=== PATIENT | female | born 1960 | race Caucasian/White ===

== ENCOUNTER → 2017-10-07 | Outpatient (CLI) | payer BC ==
[~2017-10-07] MED LIST: ABILIFY; ADAL40PEN; ALBU90OI61; ARIP10 PO; CLON.5 PO; COUMADIN; COUMADIN PO; ENOX100I; FLUSAL1005; FOLI1 PO; FURO40 PO; HUMIRA PSO40 MG/0.8; LASIX; LISI20 PO; LISINOPRIL; METO25ER PO; MULVITMIND PO; PARO20 PO; PAXIL PO; THIA100 PO; TRAZ100 PO; WARF1 PO; WARF2 PO; [UNRECOGNIZED DRUG - REMARK]
[2017-10-07 18:30] LABS: BASOPHILS ABSOLUTE AUTO 0.05 K/mm3 (0.00-0.23); BASOPHILS PERCENT AUTO 1 % (0-2); EOSINOPHILS PERCENT AUTO 2 % (0-6); Hematocrit 39.5 % (33.0-51.0); Hemoglobin 13.8 g/dL (11.5-16.0); IMMATURE GRAN ABSOLUTE AUTO 0.01 K/mm3 (0.00-0.10); IMMATURE GRAN PERCENT AUTO 0 % (0-1); LYMPHOCYTES ABSOLUTE AUTO 1.77 K/mm3 (0.84-5.20); LYMPHOCYTES PERCENT AUTO 27 % (21-46); MONOCYTES ABSOLUTE AUTO 0.46 K/mm3 (0.16-1.47); MONOCYTES PERCENT AUTO 7 % (4-13); Mean Corpuscular HGB 30.9 pg (26.0-34.0); Mean Corpuscular HGB Conc 34.9 g/dL (31.5-36.5); Mean Corpuscular Volume 89 fL (80-100); Mean Platelet Volume 11.3 fL (9.1-12.4); NEUTROPHILS PERCENT AUTO 64 % (41-73); Platelet Count 198 K/mm3 (150-400); RDW Coefficient Variation 12.1 % (11.7-14.2); Red Blood Cell Count 4.46 M/mm3 (3.80-5.20); White Blood Cell Count 6.59 K/mm3 (4.00-11.30)
[2017-10-07 18:41] LABS: Albumin/Globulin Ratio 1.1 (0.8-1.8); Bilirubin, Total 0.4 mg/dL (0.1-1.0); Bun/Creatinine Ratio 16.7 (12.0-20.0); Creatinine, Blood 1.08 mg/dL (0.40-1.00); Globulin, Blood 3.6 g/dL (2.2-4.0); Potassium, Blood 3.5 mmol/L (3.5-5.5); Total Protein, Blood 7.6 g/dL (6.4-8.2)
== END ==
LOC: LAB EV 18:25 → LAB SHORT 18:25
PROVIDERS: Physician Assistant Surgical
DX: R10.31 Right lower quadrant pain (principal)
CPT/HCPCS: 80053; 85025

== ENCOUNTER → 2018-06-09 | Outpatient (CLI) | payer BC | LOC: LAB SHORT 16:52 → LAB EV 16:52 | DX: N39.0 Urinary tract infection, site not specified (principal) | CPT/HCPCS: 87086 ==

== ENCOUNTER → 2019-03-03 | Outpatient (CLI) | payer SELFPAY ==
[2019-03-03 17:03] LABS: Bun/Creatinine Ratio 19.2 (12.0-20.0); Calcium, Blood 9.3 mg/dL (8.5-10.1); Creatinine, Blood 1.46 mg/dL (0.40-1.00); Potassium, Blood 4.4 mmol/L (3.5-5.5)
== END | disposition home or self-care (01) ==
LOC: LAB SHORT 16:48 → LAB EV 16:48
PROVIDERS: Physician Assistant Medical
DX: I82.409 Acute embolism and thrombosis of unspecified deep veins of unspecified lower extremity (principal)
CPT/HCPCS: 80048

== ENCOUNTER 2019-03-30 14:35 | Emergency (ER) | payer OTHER ==
[~2019-03-30] VITALS: Ht 157.5 cm; Wt 79.4 kg
[2019-03-30] MEDS ORDERED: Sulfamethoxazo1 EAC4 PO (14:53)
[2019-03-30] MEDS ORDERED: Augmentin 875-1 EACH (14:53)
[2019-03-30] MEDS ORDERED: XARELTO15 MG PO (14:54)
[2019-03-30] MEDS ORDERED: Augmentin 875-1 EACH PO (15:24)
[2019-03-30] MEDS ORDERED: Bactrim Ds Tab1 EACH PO (15:24)
== END 2019-03-30 15:31 | disposition home or self-care (01) ==
LOC: ER 14:35
DX: L03.115 Cellulitis of right lower limb (principal); I82.401 Acute embolism and thrombosis of unspecified deep veins of right lower extremity; I10 Essential (primary) hypertension; E11.9 Type 2 diabetes mellitus without complications; Z86.711 Personal history of pulmonary embolism; Z88.5 Allergy status to narcotic agent; Z79.899 Other long term (current) drug therapy; Z79.01 Long term (current) use of anticoagulants
CPT/HCPCS: 99283

== ENCOUNTER 2019-05-18 21:33 | Inpatient (IN) | payer OTHER ==
[~2019-05-18] VITALS: Ht 157.5 cm; Wt 83.6 kg
[~2019-05-18 21:33] MED LIST changes: +Augmentin 875-1 EACH; +Augmentin 875-1 EACH PO; +Bactrim Ds Tab1 EACH PO; +Sulfamethoxazo1 EAC4 PO; +XARELTO15 MG PO
[2019-05-18 21:59] LABS: BASOPHILS ABSOLUTE AUTO 0.03 K/mm3 (0.00-0.23); BASOPHILS PERCENT AUTO 0 % (0-2); EOSINOPHILS ABSOLUTE AUTO 0.01 K/mm3 (0.00-0.68); EOSINOPHILS PERCENT AUTO 0 % (0-6); Hematocrit 45.8 % (33.0-51.0); Hemoglobin 16.6 g/dL (11.5-16.0); IMMATURE GRAN ABSOLUTE AUTO 0.05 K/mm3 (0.00-0.10); IMMATURE GRAN PERCENT AUTO 0 % (0-1); LYMPHOCYTES ABSOLUTE AUTO 0.54 K/mm3 (0.84-5.20); LYMPHOCYTES PERCENT AUTO 3 % (21-46); MONOCYTES ABSOLUTE AUTO 0.69 K/mm3 (0.16-1.47); MONOCYTES PERCENT AUTO 4 % (4-13); Mean Corpuscular HGB 31.3 pg (26.0-34.0); Mean Corpuscular HGB Conc 36.2 g/dL (31.5-36.5); Mean Corpuscular Volume 86 fL (80-100); Mean Platelet Volume 9.7 fL (9.1-12.4); NEUTROPHILS PERCENT AUTO 92 % (41-73); Platelet Count 384 K/mm3 (150-400); RDW Coefficient Variation 11.6 % (11.7-14.2); Red Blood Cell Count 5.31 M/mm3 (3.80-5.20); White Blood Cell Count 15.72 K/mm3 (4.00-11.30)
[2019-05-18 22:17] LABS: Alanine Aminotransfer (ALT/SGP 59 U/L (12-78); Albumin, Blood 3.5 g/dL (3.4-5.0); Albumin/Globulin Ratio 0.8 (0.8-1.8); Alk Phos 213 U/L (50-136); Anion Gap 25 mmol/L (6-16); Aspartate Aminotrans (AST/SGOT 90 U/L (12-37); Bilirubin, Total 0.7 mg/dL (0.1-1.0); Blood Urea Nitrogen 9 mg/dL (8-24); Bun/Creatinine Ratio 10.9 (12.0-20.0); CO2, Blood 15 mmol/L (21-32); Calcium, Blood 8.6 mg/dL (8.5-10.1); Chloride, Blood 80 mmol/L (98-108); Creatinine, Blood 0.82 mg/dL (0.40-1.00); Ethanol (Alcohol), Blood, Med 130 mg/dL; Globulin, Blood 4.2 g/dL (2.2-4.0); Glomerular Filtration Rate >60 (60-); Glucose, Blood 171 mg/dL (70-99); Potassium, Blood 3.6 mmol/L (3.5-5.5); Sodium, Blood 120 mmol/L (136-145); Total Protein, Blood 7.7 g/dL (6.4-8.2)
[2019-05-18 22:33] LABS: U Amphetamine Screen Not Detected; U Barbituate Screen Not Detected; U Benzodiazapine Screen Not Detected; U Buprenorphine Screen Not Detected; U Cannabinoids Screen Not Detected; U Cocaine Screen Not Detected; U Methadone Screen Not Detected; U Methamphetamine Screen Not Detected; U Opiates Screen Not Detected; U Oxycodone Screen Not Detected; U Phencyclidine Screen Not Detected; U Propoxyphene Screen Not Detected
[2019-05-18 22:58] LABS: Prothrombin Time Results >90.0 Sec (9.7-11.5)
[2019-05-18 23:00] LABS: International Normalized Ratio No Calc
[2019-05-19] MEDS ORDERED: AZITHROMYCIN 250 MG (01:09)
[2019-05-19] MEDS ORDERED: WARF4 PO (01:09)
--- NOTE | 2019-05-19 02:33 | NUR ---
PT ELECTROLYTES PT SODIUM 120. POTASSIUM 3.6. AT 0230, PLACED CALL TO MARIA EUGENIA. RECOMENDED BANANA BAG D/T PT'S SODIUM AND ELECTROLYTES. STATED NO BANANA BAG AT THIS TIME. PT TO GET THIAMINE AND FOLIC ACID IN AM.
[2019-05-19 05:11] LABS: BASOPHILS ABSOLUTE AUTO 0.04 K/mm3 (0.00-0.23); BASOPHILS PERCENT AUTO 0 % (0-2); EOSINOPHILS ABSOLUTE AUTO 0.01 K/mm3 (0.00-0.68); EOSINOPHILS PERCENT AUTO 0 % (0-6); Hematocrit 42.4 % (33.0-51.0); Hemoglobin 15.6 g/dL (11.5-16.0); IMMATURE GRAN ABSOLUTE AUTO 0.03 K/mm3 (0.00-0.10); IMMATURE GRAN PERCENT AUTO 0 % (0-1); LYMPHOCYTES ABSOLUTE AUTO 0.75 K/mm3 (0.84-5.20); LYMPHOCYTES PERCENT AUTO 6 % (21-46); MONOCYTES ABSOLUTE AUTO 0.72 K/mm3 (0.16-1.47); MONOCYTES PERCENT AUTO 6 % (4-13); Mean Corpuscular HGB 31.3 pg (26.0-34.0); Mean Corpuscular HGB Conc 36.8 g/dL (31.5-36.5); Mean Corpuscular Volume 85 fL (80-100); Mean Platelet Volume 9.7 fL (9.1-12.4); NEUTROPHILS ABSOLUTE AUTO 10.88 K/mm3 (1.96-9.15); NEUTROPHILS PERCENT AUTO 88 % (41-73); Platelet Count 319 K/mm3 (150-400); RDW Coefficient Variation 11.6 % (11.7-14.2); RDW Standard Deviation 35.8 fL (35.1-46.3); Red Blood Cell Count 4.98 M/mm3 (3.80-5.20); White Blood Cell Count 12.43 K/mm3 (4.00-11.30)
[2019-05-19 05:29] LABS: Anion Gap 14 mmol/L (6-16); Blood Urea Nitrogen 10 mg/dL (8-24); CO2, Blood 24 mmol/L (21-32); Calcium, Blood 8.6 mg/dL (8.5-10.1); Chloride, Blood 83 mmol/L (98-108); Creatinine, Blood 0.83 mg/dL (0.40-1.00); Glomerular Filtration Rate >60 (60-); Glucose, Blood 193 mg/dL (70-99); Potassium, Blood 3.9 mmol/L (3.5-5.5); Sodium, Blood 121 mmol/L (136-145)
[2019-05-19 05:48] LABS: Prothrombin Time Results >90.0 Sec (9.7-11.5)
[2019-05-19 05:51] LABS: International Normalized Ratio No Calc
--- NOTE | 2019-05-19 07:08 | NUR ---
SHIFT SUMMARY PT A&OX4. LUNGS CTAB. HR 120-130S. DILT GTT AT 10MG/HR. PT CIWA 3-6. PT STATES SHE DOES NOT SEE THINGS, THEN ASKS FOR MEDICINE, THEN SAYS NOW SHE IS SEEING THINGS. PT ATE SANDWICH OVERNIGHT, GOOD APPETITE. SODIUM LEVEL 121 AT MORNING LABS, ONE LITER NS ORDERED. PT>90. FFP ORDERED. PT UP TO BEDSIDE COMMODE DURING SHIFT. PATIENT HAD ONE EPISODE OF NAUSEA, BUT RESOVLED WITH ZOFRAN IN ER.
--- NOTE | 2019-05-19 08:00 | NUR ---
Received report from Camille FERNANDO. Patient was awake and able to communicate her needs. She is on RA and sats 98%. She has tremores from ETOH withdrawls and is able to communicate when needing meds. She has 20ga LFA and is currently getting NS bolus and then at 200ml/hr and cardizem gtt at 10ml/hr and just increased to 15ml/hr for consistent rate 118. Started new 18ga IV in RFA and started FFP. She is hypertensive systolic 170-190 and medicated per JUL.
--- NOTE | 2019-05-19 08:47 | NUR ---
FFP done and flushed. Set her up for breakfast. Medicated with Librium 50mg and Ativan 2mg for anxiety per patient request. Started NS at 200ml/hr.
--- NOTE | 2019-05-19 10:50 | NUR ---
Patient has been resting after breakfast with intermitent requests. was by dixie and advised him of tranfer to PCU 3. I have already gave report to Allie FERNANDO. She continues on Cardizem gtt and reduced to 10ml/hr for systolic 110-120 and HR 80-100's. She was assisted with one full person assist to bedside cammode for urine and was incontinent of stool and cleaned her and bed linen. ECHO is being done currently. Will be transfered after test.
--- NOTE | 2019-05-19 11:40 | NUR ---
PT ARRIVED FROM ICU. PT REFSUED SCD STS "I DON'T WANT THEM THEY MAKE MY LEG CRAMP". NO OBVIOUS SIGNS OF WITHDRAWL NOTED ON ARRIVAL. SKIN PWD AND INTACT. PT ANSWERING QUESTIONS IN WITH SHORT ANSWERS SHE IS ACTIVELY ENGAGED ON HER IPAD DOES NOT LOOK UP FROM IPAD TO TALK WITH THIS RN. DENIES FURHTER NEEDS, CALL LIGHT LEFT AT BEDSIDE
--- NOTE | 2019-05-19 11:40 | NUR ---
Transfered patient to PCU 3 via wheelchair, one person transfer assist. All her belonging, phone, tablet, personal bag were taken on transfer. Allei FERNANDO was in room on transfer. She remainsed on NS at 200ml/hr and cardizem gtt at 10ml/hr. notified when here earlier that she was moving to PCU 3.
[2019-05-19 11:52] LABS: Prothrombin Time Results 47.2 Sec (9.7-11.5)
[2019-05-19 11:54] LABS: International Normalized Ratio 4.82
--- NOTE | 2019-05-19 12:57 | NUR ---
ECHOCARDIOGRAM COMPLETE
--- NOTE | 2019-05-19 13:29 | NUR ---
cardizem stopped per orders
--- NOTE | 2019-05-19 16:31 | NUR ---
PT STS THAT SHE NEEDS REMOVED FROM IV FLUIDS "I HAVE TO GO USE A COMPUTER TO DO MY UNEMPLOYMENT" IS EDUCATED THAT LEAVING ROOM SHE WILL NOT BE MONITORED APPROPRIATELY VIA HARD HAT DIVER PT STS "WELL IF YOU DON'T LET ME YOU WILL BE COSTING ME MY UNEMPLOYMENT" PT IS REMINDED THAT SHE IS NOT BEING TOLD SHE CAN NOT LEAVE RATHER IS BEING EDUCATED THAT LEAVING IS NOT THE SAFEST DECISION, PT EXPRESSED UNDERSTANDING OF EDUCATION. PT STS THAT STAFF WILL NEED TO ESCORT HER OUT OF HOSPITAL, PT EDUCATED THAT STAFF CAN NOT BE TAKING HER TO DESIRED LOCATIONS IN AND OUT OF HOSPITAL, PT STS "I WILL PUSH MYSELF" PT PROVIDED WITH WAIVER AND EDUCATED AGAIN THAT LEAVING RANGE OF MONITORING, SHE AGREES THAT SHE WILL ASSUME [id number] FOR HER DECISION TO LEAVE
--- NOTE | 2019-05-19 16:55 | NUR ---
PT BROUGHT BACK TO ROOM AFTYER CONSULTING WITH DR FIORE ABOUT PT LEAVING. PT WAS AGREEABLE TO COME BACK TO ROM WHEN OFFERED TO LOG HER IPAD ON TO [employer]. PT PARANOID THAT HER UNEMPLOYMENT HAS , OTHERWISE IS ALERT AND ANSWERING QUESTIONS APPROPRIATELY. PT AWARE OF HER SURROUNDINGS ONLY PRSENTS WITH PARANOIA. PT IS COOPERATIVE WHEN BROUGHT BACK TO ROOM, PT MEDICATED PER ORDERS CONSULTED WITH DR FIORE.
--- NOTE | 2019-05-19 18:09 | NUR ---
SHIFT NOTE PT WAS AN ICU TRANSFER THIS AFTERNOON. SHE ARRIVED A/O X4. SHE ANSWERS ALL QUESTIONS APPROPRIATELY. PT DID HAVE AN EPISODE OF PARANOIA WHERE SHE LEFT THE ROOM CONCERNED THAT SHE WAS LOSING HER UNEMPLOYMENT BENEFITS STATING THAT STAFF WAS GOING TO CAUSE HER TO LOSE HER BENEFITS. DR FIORE WAS CONSULTED AND DECISION WAS MADE TO BRING PT BACK TO ROOM AND MEDICATE HER FOR ANXIETY AND PARANOIA R/T WITHDRAWL WHICH PT HAD A CIWA OF 9 WHEN MEDICATED. PT HAS BEEN RESTING AWAKE AND COMFORTABLE IN BED SINCE BEING MEDCIATED, PT UP TO BEDSIDE TO EAT HER DINNER.
[2019-05-20 04:34] LABS: International Normalized Ratio 2.2; Prothrombin Time Results 22.5 Sec (9.7-11.5)
--- NOTE | 2019-05-20 05:10 | NUR ---
SHIFT SUMMARY PT SLEEPING IN ROOM COMFORTABLY AT THIS TIME. NO ACUTE CHANGES IN STATUS T.O NGIHT. PT SLEPT WELL T/O NIGHT. DENIED ANY CP OR SOB. PT CIWA REMAINED <8 T/O NIGHT. RESP EVEN UNLABORED ON RA W/ SATS >92%. PT DID CONVERT FROM AFIB TO SR AT APPROX 1900. PT USED CALL LIGHT APPROPRIATELY T/O NIGHT AND WAS SBA TO BSC. DENIES OTHER NEEDS. CALL LIGHT IN REACH. WILL GIVE REPORT TO ONCOMING RN.
[2019-05-20 08:59] LABS: BASOPHILS ABSOLUTE AUTO 0.01 K/mm3 (0.00-0.23); BASOPHILS PERCENT AUTO 0 % (0-2); EOSINOPHILS PERCENT AUTO 0 % (0-6); Hematocrit 41.5 % (33.0-51.0); Hemoglobin 14.7 g/dL (11.5-16.0); IMMATURE GRAN ABSOLUTE AUTO 0.03 K/mm3 (0.00-0.10); IMMATURE GRAN PERCENT AUTO 0 % (0-1); LYMPHOCYTES ABSOLUTE AUTO 0.87 K/mm3 (0.84-5.20); LYMPHOCYTES PERCENT AUTO 12 % (21-46); MONOCYTES ABSOLUTE AUTO 0.55 K/mm3 (0.16-1.47); MONOCYTES PERCENT AUTO 8 % (4-13); Mean Corpuscular HGB 31.2 pg (26.0-34.0); Mean Corpuscular HGB Conc 35.4 g/dL (31.5-36.5); NEUTROPHILS ABSOLUTE AUTO 5.58 K/mm3 (1.96-9.15); NEUTROPHILS PERCENT AUTO 79 % (41-73); Platelet Count 201 K/mm3 (150-400); RDW Coefficient Variation 11.8 % (11.7-14.2); RDW Standard Deviation 37.9 fL (35.1-46.3); Red Blood Cell Count 4.71 M/mm3 (3.80-5.20); White Blood Cell Count 7.04 K/mm3 (4.00-11.30)
[2019-05-20 09:04] LABS: Mean Corpuscular Volume 88 fL (80-100)
[2019-05-20 09:28] LABS: Magnesium, Blood 2.1 mg/dL (1.6-2.4)
[2019-05-20 09:31] LABS: Alanine Aminotransfer (ALT/SGP 38 U/L (12-78); Albumin, Blood 3.1 g/dL (3.4-5.0); Albumin/Globulin Ratio 0.9 (0.8-1.8); Alk Phos 150 U/L (50-136); Aspartate Aminotrans (AST/SGOT 48 U/L (12-37); Bilirubin, Total 1.6 mg/dL (0.1-1.0); Blood Urea Nitrogen 11 mg/dL (8-24); Bun/Creatinine Ratio 13.7 (12.0-20.0); CO2, Blood 26 mmol/L (21-32); Calcium, Blood 9.3 mg/dL (8.5-10.1); Chloride, Blood 101 mmol/L (98-108); Globulin, Blood 3.5 g/dL (2.2-4.0); Glomerular Filtration Rate >60 (60-); Glucose, Blood 167 mg/dL (70-99); Potassium, Blood 3.5 mmol/L (3.5-5.5); Total Protein, Blood 6.6 g/dL (6.4-8.2)
[2019-05-20 09:32] LABS: Anion Gap 8 mmol/L (6-16); Sodium, Blood 135 mmol/L (136-145)
[2019-05-20 13:46] LABS: Anion Gap 9 mmol/L (6-16); Blood Urea Nitrogen 13 mg/dL (8-24); CO2, Blood 24 mmol/L (21-32); Calcium, Blood 8.6 mg/dL (8.5-10.1); Chloride, Blood 99 mmol/L (98-108); Creatinine, Blood 0.81 mg/dL (0.40-1.00); Glomerular Filtration Rate >60 (60-); Glucose, Blood 272 mg/dL (70-99); Potassium, Blood 3.1 mmol/L (3.5-5.5); Sodium, Blood 132 mmol/L (136-145)
--- NOTE | 2019-05-20 17:46 | NUR ---
SHIFT SUMMARY PT ALERT AND ORIENTED AT THIS TIME. BP STABLE. HR AFIB 100'S. O2 SATS REMAIN ABOVE 90% ON RA. PT HAVING VISUAL AND AUDITORY HALLUCINATIONS AT TIMES THROUGHOUT SHIFT AND MEDICATED PER CIWA PROTOCOL. PT ABLE TO AMBULATE TO BATHROOM AND BSC NEEDED TO VOID WITH SBA AND FWW. PT DENIES ANY PAIN. PT ANXIOUS AT TIMES. WILL CONTINUE TO MONITOR CLOSELY. CALL LIGHT IN REACH.
--- NOTE | 2019-05-21 01:42 | NUR ---
ASSUMED CARE AT 1900. AF CONTROLLED RATE. 90. WHEN OOB TO BR NOTED 130 RATE , AND AT REST RATE BACK TO 90; CIWA 10 AT 1999. ATIVAN 1 MG GIVEN AND SCHEDULED LIBRIUM GIVEN. REVIEW OF HALLUCINATIONS @ 2000 = "I SEE THINGS ON THE WALL AND I AM HEARING GRIFFIN TALK TO ME AND MY DOG BARK. MY LEGS ITCH AND MY RT FOOT NUMB. MY HEAD ACHE NEVER GOES AWAY AND IT IS VERY SEVERE. I CANT HAVE THE LIGHTS ON. I HAVE CHRONIC BACK PAIN AND IT IS A 5/10 , AND THIS IS WHAT I LIVE W/. " YELLING OUT AND TALKING HARSHLY TO AND TELLS HIM TO GO OUT AND DO HIS USUAL DRINKING. AND CALLING W/ A SOFT VOICE FOR HER DOG TO COME TO SLEEP BY HER. NOTED MANY BRIUSES ALL OVER LEGS AND BOTH UPPER BUTTOCK AREAS . SEVERLY EXCORIATED HARESH ANAL AREA . RRPORTS "I HAVE BEEN POOPING AND PEEING ON MY SKIN AT HOME. NO DISCUSSION ABOUT WHY SHE HAS BEEN FALLING ALL THE TIME AT HOME. WHILE SHE IS HALLUCINATING THIS NURSE DID NOT ASK ABOUT THIS. SLEEPING SOUNDLY FROM 2029 TO 99. THEN ASKED STAFF TO GIVE HER A BEDPAN SINCE SHE COULD NOT MAKE IT TO [facility] [place]. SKIN CONDITION ADDRESSED , HARESH ANAL AREA CIWA 15 , 1 MG ATIVAN IV GIVEN. WHEN ASKED ABOUT HALLUCINATIONS, YELLING OUT AT HER AND SAYS GET THE DISHES DONE BEFORE YOU GO OUT DRINKING AGAIN. CONSTANT YELLING AT HIM AND TALKING MORE CALMLY AT DOG. LATER SAYS MY TOOK OFF ALL MY PATCHES FOR MY HEART MONITOR. CONT TO SAY MY FOURNIER IS NOT GOING AWAY . QUESTIONED ABOUT ABUSE AT HER HOME SINCE SHE HAS SO MANY BUISES. DENIES ANY ABUSE AT HOME.
--- NOTE | 2019-05-21 02:22 | NUR ---
CALLS NURSES STATION W/ CELL PHONE, TO HAVE THIS STAFF NURSE COME TO HER ROOM. HER CALL LITE IS IN REACH WHEN STAFF ENTERS ROOM. REPORTS. "I CANT TAKE ANOTHER MINUTE IN THIS ROOM , I HAVE MY FRIEND COMING TO PICK ME UP. " NOTIFIED THAT I WILL PREPARE AMA PAPERS TO SIGN. REQUEST FOR IVS TO BE REMOVED AND STAFF NOTIFIES WE WILL WAIT UNTIL SHE LEAVES/
--- NOTE | 2019-05-21 03:30 | NUR ---
PULLING OUT ONE IV. FRIEND , LAZARO HERE UPON PT REQUEST. AND WILL TAKE HER TO HER HOME. SIGNED AMA W/ RISKS LISTED. SEVERE WEAKNESS AND COULD ONLY TAKE 2 STEPS IO W/C AND THEN TO CAR W/ EXTREME EFFORT AND DIFFICULY. VERY LITTLE MEDS GIVEN FOR DTS AND WITH ALL HALLUCINATIONS CIWA COULD RANGE FROM 15-19. PLEASANT AND CALM WHILE SHE MADE THIS DECISION TO EXIT AMA . INFORMED DR GOSS OF AMA
[2019-05-21] MEDS ORDERED: MONT10T PO (15:53)
[2019-05-21] MEDS ORDERED: FLUTICASONE-SA1 EAC4 INH (15:59)
[2019-05-22] MEDS ORDERED: ACET325 PO (12:06)
[2019-05-22] MEDS ORDERED: Aspir 8181 MG PO (12:07)
[2019-05-22] MEDS ORDERED: DILT120 PO (12:08)
[2019-05-22] MEDS ORDERED: FLUTICASONE-SA1 EAC2 INH (12:10)
[2019-05-22] MEDS ORDERED: MONT10T PO (12:13)
== END 2019-05-21 03:42 | disposition left against medical advice (07) | DRG 309 ==
LOC: ER 21:33 → ICUW 23:58 → PCU 05-19 11:43
PROVIDERS: Emergency Medicine; Internal Medicine; Pharmacist; ADMIT Hospitalist
DX: I48.0 Paroxysmal atrial fibrillation (principal); F10.239 Alcohol dependence with withdrawal, unspecified; E87.1 Hypo-osmolality and hyponatremia; Z86.718 Personal history of other venous thrombosis and embolism; Z88.5 Allergy status to narcotic agent
CPT/HCPCS: 36415; 36430; 70450; 73630; 80048; 80053; 83690; 83735; 84443; 85025; 85610; 86850; 86900; 86901; 93005; 93010; 93306; 96374; 96376; 99285-25; A9270; G0480; J2060; J2405; J7030; P9059

== ENCOUNTER 2019-05-21 11:01 | Observation (INO) | payer OTHER ==
[~2019-05-21] VITALS: Ht 157.5 cm; Wt 77.7 kg
[~2019-05-21 11:01] MED LIST changes: +AZITHROMYCIN 250 MG; +WARF4 PO
[2019-05-21 13:04] LABS: BASOPHILS ABSOLUTE AUTO 0.04 K/mm3 (0.00-0.23); BASOPHILS PERCENT AUTO 0 % (0-2); EOSINOPHILS ABSOLUTE AUTO 0.02 K/mm3 (0.00-0.68); EOSINOPHILS PERCENT AUTO 0 % (0-6); Hematocrit 44.4 % (33.0-51.0); Hemoglobin 15.3 g/dL (11.5-16.0); IMMATURE GRAN ABSOLUTE AUTO 0.06 K/mm3 (0.00-0.10); IMMATURE GRAN PERCENT AUTO 1 % (0-1); LYMPHOCYTES ABSOLUTE AUTO 1.11 K/mm3 (0.84-5.20); LYMPHOCYTES PERCENT AUTO 12 % (21-46); MONOCYTES ABSOLUTE AUTO 0.89 K/mm3 (0.16-1.47); MONOCYTES PERCENT AUTO 10 % (4-13); Mean Corpuscular HGB 31.2 pg (26.0-34.0); Mean Corpuscular HGB Conc 34.5 g/dL (31.5-36.5); Mean Platelet Volume 10.2 fL (9.1-12.4); NEUTROPHILS ABSOLUTE AUTO 7.12 K/mm3 (1.96-9.15); NEUTROPHILS PERCENT AUTO 77 % (41-73); Platelet Count 144 K/mm3 (150-400); RDW Coefficient Variation 11.8 % (11.7-14.2); RDW Standard Deviation 39.1 fL (35.1-46.3); White Blood Cell Count 9.24 K/mm3 (4.00-11.30)
[2019-05-21 13:06] LABS: Mean Corpuscular Volume 91 fL (80-100)
[2019-05-21 13:33] LABS: Ethanol (Alcohol), Blood, Med <3 mg/dL; Salicylate <1.7 mg/dL (2.8-20.0)
[2019-05-21 13:44] LABS: Alanine Aminotransfer (ALT/SGP 50 U/L (12-78); Albumin, Blood 3.1 g/dL (3.4-5.0); Albumin/Globulin Ratio 0.8 (0.8-1.8); Alk Phos 141 U/L (50-136); Anion Gap 8 mmol/L (6-16); Aspartate Aminotrans (AST/SGOT 56 U/L (12-37); Bilirubin, Total 0.9 mg/dL (0.1-1.0); Blood Urea Nitrogen 10 mg/dL (8-24); Bun/Creatinine Ratio 14.6 (12.0-20.0); CO2, Blood 27 mmol/L (21-32); Calcium, Blood 9.1 mg/dL (8.5-10.1); Chloride, Blood 98 mmol/L (98-108); Creatinine, Blood 0.68 mg/dL (0.40-1.00); Glomerular Filtration Rate >60 (60-); Glucose, Blood 203 mg/dL (70-99); Potassium, Blood 3.1 mmol/L (3.5-5.5); Sodium, Blood 133 mmol/L (136-145); Total Protein, Blood 7.1 g/dL (6.4-8.2)
[2019-05-21 13:54] LABS: Source, Urine Voided
[2019-05-21 14:01] LABS: Bilirubin, Urine Neg (Neg); Blood, Urine 2+ (Neg); Glucose Qualitative, Urine 3+ (Neg); Ketones, Urine Neg (Neg); Leukocyte Esterase, Urine 1+ (Neg); Nitrite, Urine Neg (Neg); Protein, Urine Neg (Neg); Urobilinogen, Urine NORM (Normal)
[2019-05-21 14:04] LABS: Appearance, Urine Clear (Clear); Color, Urine Yellow (P-Yellow)
[2019-05-21 14:06] LABS: Acetaminophen, Random <2.0 ug/mL (10.0-30.0)
[2019-05-21 14:16] LABS: Bacteria Mod /hpf; Red Blood Cells, Urine 0-2 /hpf (0-2); Squamous Epithelial Cells Few /hpf (Few)
[2019-05-21 14:21] LABS: U Amphetamine Screen DETECTED; U Barbituate Screen Not Detected; U Benzodiazapine Screen Not Detected; U Buprenorphine Screen Not Detected; U Cannabinoids Screen Not Detected; U Cocaine Screen Not Detected; U Methadone Screen Not Detected; U Methamphetamine Screen Not Detected; U Opiates Screen Not Detected; U Oxycodone Screen Not Detected; U Phencyclidine Screen Not Detected; U Propoxyphene Screen Not Detected
[2019-05-21] MEDS ORDERED: MONT10T PO (15:53)
[2019-05-21] MEDS ORDERED: FLUTICASONE-SA1 EAC4 INH (15:59)
[2019-05-21 18:21] LABS: International Normalized Ratio 1.83; Prothrombin Time Results 18.9 Sec (9.7-11.5)
--- NOTE | 2019-05-21 19:00 | NUR ---
PT ARRIVED TO ROOM 350 WITH ROOM CHECKED PRIOR TO ARRIVAL FOR S.I. ARRIVED TO ROOM ON [facility] AND TRANSFERRED WITH ASSIST. ASKING ABOUT USING A PHONE. DISCUSSED WITH PT CONCERN ABOUT HER REPORT OF SELF HARM. IV STARTED BY SAND TEMPERER AND TELE PLACED.
--- NOTE | 2019-05-21 22:50 | NUR ---
UFF CONSULT PAPERWORK FAXED TO ER.
[2019-05-22 05:16] LABS: BASOPHILS ABSOLUTE AUTO 0.03 K/mm3 (0.00-0.23); BASOPHILS PERCENT AUTO 0 % (0-2); EOSINOPHILS ABSOLUTE AUTO 0.09 K/mm3 (0.00-0.68); EOSINOPHILS PERCENT AUTO 1 % (0-6); Hematocrit 39.8 % (33.0-51.0); Hemoglobin 14.1 g/dL (11.5-16.0); IMMATURE GRAN ABSOLUTE AUTO 0.03 K/mm3 (0.00-0.10); IMMATURE GRAN PERCENT AUTO 0 % (0-1); LYMPHOCYTES PERCENT AUTO 15 % (21-46); MONOCYTES ABSOLUTE AUTO 0.41 K/mm3 (0.16-1.47); MONOCYTES PERCENT AUTO 6 % (4-13); Mean Corpuscular HGB 31.8 pg (26.0-34.0); Mean Corpuscular HGB Conc 35.4 g/dL (31.5-36.5); Mean Corpuscular Volume 90 fL (80-100); NEUTROPHILS ABSOLUTE AUTO 5.24 K/mm3 (1.96-9.15); NEUTROPHILS PERCENT AUTO 77 % (41-73); Platelet Count 178 K/mm3 (150-400); RDW Coefficient Variation 11.7 % (11.7-14.2); RDW Standard Deviation 38.5 fL (35.1-46.3); Red Blood Cell Count 4.43 M/mm3 (3.80-5.20)
[2019-05-22 05:32] LABS: International Normalized Ratio 2.17; Prothrombin Time Results 22.2 Sec (9.7-11.5)
--- NOTE | 2019-05-22 05:36 | NUR ---
SUMMARY: PT REMAINS ON SI PREC'S W/CAMERA MONITORING IN PLACE PENDING REEVALUATION BY TODAY. SHE ADMITS TO SI YESTERDAY PRIOR TO ADMIT BUT DENIED HAVING A PLAN OR ANY THOUGHTS OF HARMING HERSELF SINCE. SHE DIDN'T CARE TO ELABORATE BUT STATED THOUGHTS WERE PROVOKED BY "BEING EXHAUSTED AND IT ALL JUST BECOMING TOO MUCH". SUPPORT PROVIDED BUT PT IS SOMEWHAT FLAT/ WITHDRAWN AND ADMITS TO DEPRESSION. SHE IS A/OX4 BUT SEEMS MILDLY FORGETFULL AT TIMES, CALLING INTO HALLS FOR ASSIST RATHER THEN USING CALL LIGHT. BED ALARM ON FOR IMPULSIVITY AND FALL RISK. SHE REPORTS FALLING MULTIPLE TIMES PRIOR TO ADMISSION W/BRUISES SCATTERED T/O HER BODY RESULT OF "DT'S". SHE ADMITS TO DRINKING X3 DAYS AGO BUT SAYS SHE "REALLY ONLY SELDOMLY DRINKS". CIWA'S WERE 0-4 D/T C/O MILD FOURNIER, TREMOR AND SLIGHT NAUSEA. PT REFUSED TYLENOL AND ZOFRAN THOUGH AND SLEPT EASILY W/O NEEDING LIBRIUM OR ATIVAN PRN. HER R.ANKLE/CALF/FOOT IS SWOLLEN, HOT AND RED D/T "BLOOD CLOT". PT ADMITS TO TAKING COUMADIN FOR IT. SHE DENIED ANY FURTHER COMPLAINTS/CONCERNS AND SLEPT MAJORITY OF SHIFT EXCEPT FOR BSC USE W/SBA. PT PREFERS NOT TO WEAR BLUE PAPER CLOTHING. PT HAS KNOWN AFIB AND HAS REMAINED IN AFIB W/HR 80'S- 90'S BPM PER TELEMETRY. NO ACUTE CHANGES, VSS/AFEBRILE. WCTM AND REPORT TO DAY RN.
[2019-05-22 05:54] LABS: Anion Gap 6 mmol/L (6-16); Blood Urea Nitrogen 18 mg/dL (8-24); Bun/Creatinine Ratio 21.4 (12.0-20.0); CO2, Blood 28 mmol/L (21-32); Chloride, Blood 103 mmol/L (98-108); Creatinine, Blood 0.84 mg/dL (0.40-1.00); Glomerular Filtration Rate >60 (60-); Glucose, Blood 199 mg/dL (70-99); Magnesium, Blood 1.9 mg/dL (1.6-2.4); Phosphorus, Blood 2.6 mg/dL (2.5-4.9); Potassium, Blood 3.7 mmol/L (3.5-5.5); Sodium, Blood 137 mmol/L (136-145)
--- NOTE | 2019-05-22 11:11 | NUR ---
Safety Plan reviewed with patient. She reports she was not in hospital for suicidal thoughts, but for detox. She halllucinated yesterday while hospitalizxed in PCU and walked out because it scared her so much. She now is able to know that it was part of her detoxing. She had been sober for 8 years--[facility] for treatment. She relapsed and drank for the past 5-6 dyas. She reports stress--nher and she do not have jobs. She does think that a counselor might be helpful for her. DDiscussed [facility] and walk in hours. [facility] updated on this [facility] planning. Pt worried about cost. After discussion, it appears Hospital has assisted her to apply for OHP. Pt says she was told she got it. Pt was not talkative, and continued to lay flat in bed with covers to her chin during visit. Her had come to [facility], and left as he "[facility]". Pt was oriented x3. Affect was flat. She denied suicidal ideation. Luzma Garcia M.Ed., [facility]
[2019-05-22] MEDS ORDERED: ACET325 PO (12:06)
[2019-05-22] MEDS ORDERED: Aspir 8181 MG PO (12:07)
[2019-05-22] MEDS ORDERED: DILT120 PO (12:08)
[2019-05-22] MEDS ORDERED: FLUTICASONE-SA1 EAC2 INH (12:10)
[2019-05-22] MEDS ORDERED: MONT10T PO (12:13)
--- NOTE | 2019-05-22 15:30 | NUR ---
DISCHARGE INSTRUCTIONS COMPLETED AND DISCUSSED WITH PT EXPRESSING UNDERSTANDING. SCRIPTS FAXED TO [facility]. HAD BEEN UP TO COMMODE ON HER OWN TODAY. REPORTS SHE HAS NO SI TODAY. P.T. IN TO SEE PT AND RECOMMENDED WALKER ON DISCHARGE. FRIEND HERE TO PICK PT UP. TO [facility] VIA W/C.
== END 2019-05-22 14:59 | disposition home or self-care (01) ==
LOC: ER 11:01 → EOR 11:02 → MEDS 11:02
PROVIDERS: Internal Medicine; ADMIT Emergency Medicine
DX: I10 Essential (primary) hypertension (principal); F43.21 Adjustment disorder with depressed mood; F10.10 Alcohol abuse, uncomplicated; R53.1 Weakness; R82.5 Elevated urine levels of drugs, medicaments and biological substances; E87.6 Hypokalemia; E87.1 Hypo-osmolality and hyponatremia; I48.91 Unspecified atrial fibrillation; G47.00 Insomnia, unspecified; J45.909 Unspecified asthma, uncomplicated; E11.9 Type 2 diabetes mellitus without complications; E78.5 Hyperlipidemia, unspecified; Z86.718 Personal history of other venous thrombosis and embolism; Z79.01 Long term (current) use of anticoagulants; Z88.5 Allergy status to narcotic agent; Z79.51 Long term (current) use of inhaled steroids; Z79.82 Long term (current) use of aspirin; Z79.899 Other long term (current) drug therapy; Z98.84 Bariatric surgery status; Y90.6 Blood alcohol level of 120-199 mg/100 ml
CPT/HCPCS: 36415; 80048; 80053; 81001; 81025; 83735; 84100; 85025; 85610; 87086; 93005; 93010; 94640; 94760; 96374; 97116; 97162; 99285-25; C9113; G0378; G0480

== ENCOUNTER 2019-06-24 18:26 | Observation (INO) | payer OTHER ==
[~2019-06-24] VITALS: Ht 160 cm; Wt 70.3 kg
[~2019-06-24 18:26] MED LIST changes: +ACET325 PO; +Aspir 8181 MG PO; +BACTRIM DS TAB1 EACH PO; +DILT120 PO; +FLUTICASONE-SA1 EAC2 INH; +FLUTICASONE-SA1 EAC4 INH; +IBUP400 PO; +LOSA25 PO; +METOPROLOL TART25 MG PO; +MONT10T PO
[2019-06-24 20:37] LABS: Source, Urine Clean Catch
[2019-06-24 20:39] LABS: Appearance, Urine Clear (Clear); Bilirubin, Urine Neg (Neg); Blood, Urine Neg (Neg); Color, Urine Yellow (P-Yellow); Glucose Qualitative, Urine Neg (Neg); Ketones, Urine Neg (Neg); Leukocyte Esterase, Urine Neg (Neg); Nitrite, Urine Neg (Neg); Protein, Urine Neg (Neg); Urobilinogen, Urine NORM (Normal)
== END 2019-06-25 01:36 | disposition home or self-care (01) ==
LOC: ER 18:26 → EOR 18:27
PROVIDERS: Physician Assistant; ADMIT Emergency Medicine
DX: F10.229 Alcohol dependence with intoxication, unspecified (principal); E78.5 Hyperlipidemia, unspecified; E11.9 Type 2 diabetes mellitus without complications; J45.909 Unspecified asthma, uncomplicated; I10 Essential (primary) hypertension; Z79.01 Long term (current) use of anticoagulants; Z79.899 Other long term (current) drug therapy
CPT/HCPCS: 70450; 81003; 99285-25; G0378

== ENCOUNTER 2019-06-27 17:17 | Emergency (ER) | payer OTHER ==
[2019-06-28] MEDS ORDERED: B-1100 M1 PO (12:44)
== END 2019-06-28 17:30 | disposition left against medical advice (07) ==
LOC: ER 17:17
DX: Z53.21 Procedure and treatment not carried out due to patient leaving prior to being seen by health care provider (principal)

== ENCOUNTER 2019-06-28 09:24 | Inpatient (IN) | payer OTHER ==
[~2019-06-28] VITALS: Ht 157.5 cm; Wt 81.2 kg
[2019-06-28 11:16] LABS: BASOPHILS ABSOLUTE AUTO 0.03 K/mm3 (0.00-0.23); BASOPHILS PERCENT AUTO 1 % (0-2); EOSINOPHILS PERCENT AUTO 0 % (0-6); Hematocrit 44.5 % (33.0-51.0); Hemoglobin 15.6 g/dL (11.5-16.0); IMMATURE GRAN ABSOLUTE AUTO 0.02 K/mm3 (0.00-0.10); IMMATURE GRAN PERCENT AUTO 0 % (0-1); LYMPHOCYTES ABSOLUTE AUTO 0.21 K/mm3 (0.84-5.20); LYMPHOCYTES PERCENT AUTO 4 % (21-46); MONOCYTES ABSOLUTE AUTO 0.45 K/mm3 (0.16-1.47); MONOCYTES PERCENT AUTO 9 % (4-13); Mean Corpuscular HGB 30.9 pg (26.0-34.0); Mean Corpuscular HGB Conc 35.1 g/dL (31.5-36.5); Mean Corpuscular Volume 88 fL (80-100); Mean Platelet Volume 9.4 fL (9.1-12.4); NEUTROPHILS ABSOLUTE AUTO 4.55 K/mm3 (1.96-9.15); NEUTROPHILS PERCENT AUTO 86 % (41-73); Platelet Count 355 K/mm3 (150-400); RDW Coefficient Variation 12.4 % (11.7-14.2); RDW Standard Deviation 39.9 fL (35.1-46.3); Red Blood Cell Count 5.05 M/mm3 (3.80-5.20); White Blood Cell Count 5.26 K/mm3 (4.00-11.30)
[2019-06-28 11:38] LABS: Alanine Aminotransfer (ALT/SGP 79 U/L (12-78); Albumin, Blood 3.6 g/dL (3.4-5.0); Albumin/Globulin Ratio 0.9 (0.8-1.8); Alk Phos 187 U/L (50-136); Anion Gap 15 mmol/L (6-16); Aspartate Aminotrans (AST/SGOT 82 U/L (12-37); Bilirubin, Total 0.6 mg/dL (0.1-1.0); Blood Urea Nitrogen 6 mg/dL (8-24); Bun/Creatinine Ratio 7.1 (12.0-20.0); CO2, Blood 25 mmol/L (21-32); Calcium, Blood 8.7 mg/dL (8.5-10.1); Chloride, Blood 82 mmol/L (98-108); Creatinine, Blood 0.85 mg/dL (0.40-1.00); Ethanol (Alcohol), Blood, Med 223 mg/dL; Globulin, Blood 4.1 g/dL (2.2-4.0); Glomerular Filtration Rate >60 (60-); Glucose, Blood 113 mg/dL (70-99); Potassium, Blood 4.2 mmol/L (3.5-5.5); Salicylate 1.9 mg/dL (2.8-20.0); Sodium, Blood 122 mmol/L (136-145); Total Protein, Blood 7.7 g/dL (6.4-8.2)
[2019-06-28 11:41] LABS: Acetaminophen, Random <2.0 ug/mL (10.0-30.0)
[2019-06-28 11:56] LABS: Source, Urine Clean Catch
[2019-06-28 12:08] LABS: Bilirubin, Urine Neg (Neg); Blood, Urine 2+ (Neg); Glucose Qualitative, Urine Neg (Neg); Ketones, Urine Neg (Neg); Leukocyte Esterase, Urine Neg (Neg); Nitrite, Urine Neg (Neg); Protein, Urine 2+ (Neg); Urobilinogen, Urine NORM (Normal)
[2019-06-28 12:25] LABS: Appearance, Urine Clear (Clear); Color, Urine Yellow (P-Yellow)
[2019-06-28 12:26] LABS: Bacteria Not Seen /hpf; Red Blood Cells, Urine 0-2 /hpf (0-2); Squamous Epithelial Cells Mod /hpf (Few); White Blood Cells, Urine 0-2 /hpf (0-5)
[2019-06-28 12:43] LABS: U Amphetamine Screen Not Detected; U Barbituate Screen Not Detected; U Benzodiazapine Screen Not Detected; U Buprenorphine Screen Not Detected; U Cannabinoids Screen Not Detected; U Cocaine Screen Not Detected; U Methadone Screen Not Detected; U Methamphetamine Screen Not Detected; U Opiates Screen Not Detected; U Oxycodone Screen Not Detected; U Phencyclidine Screen Not Detected; U Propoxyphene Screen Not Detected
[2019-06-28] MEDS ORDERED: B-1100 M1 PO (12:44)
[2019-06-28 15:15] LABS: International Normalized Ratio 1.26; Prothrombin Time Results 13.3 Sec (9.7-11.5)
--- NOTE | 2019-06-29 06:49 | NUR ---
SHIFT SUMMARY PT HAS RESTED FOR MOST OF THE NIGHT. PT WAS VERY ANXIOUS AT THE BEGINNING OF THE SHIFT. SHE HAD VISIBLE TREMORS, AND WAS VISIBLY AGITATED. CIWA WAS 11. MEDICATED WITH LIBRIUM. SINCE THAT TIME PT HAS BEEN ABLE TO REST AND HAS NOT HAD COMPLAINTS. MEDICATED X1 FOR BACK PAIN. CIWA'S SINCE MY INITIAL ASSESSMENT WERE UNDER 8. TELE IN PLACE WITH AFIB RHYTHM PER HEALTH SAFETY ENGINEER. PT HAS HX OF AFIB. RATE IS CONTROLLED IN THE 80'S. IVF INFUSING PER ORDERS. PT A/OX4, CALLS APPROPRIATELY. BED IN LOWEST POSITION, CALL LIGHT WITHIN REACH. WILL CONTINUE TO MONITOR AND REPORT TO ONCOMING RN.
[2019-06-29 14:40] LABS: Anion Gap 6 mmol/L (6-16); Blood Urea Nitrogen 14 mg/dL (8-24); Bun/Creatinine Ratio 14.7 (12.0-20.0); CO2, Blood 27 mmol/L (21-32); Calcium, Blood 8.4 mg/dL (8.5-10.1); Chloride, Blood 92 mmol/L (98-108); Creatinine, Blood 0.95 mg/dL (0.40-1.00); Glomerular Filtration Rate >60 (60-); Glucose, Blood 206 mg/dL (70-99); Magnesium, Blood 2.2 mg/dL (1.6-2.4); Potassium, Blood 4.3 mmol/L (3.5-5.5); Sodium, Blood 125 mmol/L (136-145)
--- NOTE | 2019-06-29 17:41 | NUR ---
PATIENT A/OX4, UP TO CHAIR TODAY WITH 2 ASSIST AND A FWW. R ANKLE FX IS SLPINTED. PAIN WELL CONTROLLED WITH NORCO. CIWA THIS AFTERNOON WAS 15 AND LIBRIUM WAS GIVEN. RECHECKED AND PATIENT DID NOT REQUIRE ANY ADDITIONAL LIBRIUM OR ATIVAN THIS SHIFT. VSS, ON RA. TOLERATING ADA DIET. PT/OT ORDERED. PLANS TO F/U WITH [facility] FOR REHAB ONCE DC'D. NA+ REMAINS 122, PATIENT HAS NS @100ML/HR AND DAILY BANANA BAG. 20G IV TO L FA WNL. CALM AND COOPERATIVE WITH CARE. CALLS APPROPRIATELY FOR ASSISTANCE.
--- NOTE | 2019-06-30 04:53 | NUR ---
SUMMARY PT CONTINUES TO COMPLAIN OF COUGH AND SORE THROAT. DR. CARRINGTON ORDERED COUGH MEDS W/ SOME RELIEF. PT HAS STATED SHE WANTS TO GO HOME TODAY. PT CURRENTLY SLEEPING IN NO DISTRESS. CALL LIGHT IN REACH
[2019-06-30 05:21] LABS: BASOPHILS ABSOLUTE AUTO 0.02 K/mm3 (0.00-0.23); BASOPHILS PERCENT AUTO 1 % (0-2); EOSINOPHILS ABSOLUTE AUTO 0.02 K/mm3 (0.00-0.68); EOSINOPHILS PERCENT AUTO 1 % (0-6); Hematocrit 37.2 % (33.0-51.0); Hemoglobin 12.4 g/dL (11.5-16.0); IMMATURE GRAN ABSOLUTE AUTO 0.02 K/mm3 (0.00-0.10); IMMATURE GRAN PERCENT AUTO 1 % (0-1); LYMPHOCYTES ABSOLUTE AUTO 0.46 K/mm3 (0.84-5.20); LYMPHOCYTES PERCENT AUTO 11 % (21-46); MONOCYTES ABSOLUTE AUTO 0.39 K/mm3 (0.16-1.47); MONOCYTES PERCENT AUTO 10 % (4-13); Mean Corpuscular HGB 31.8 pg (26.0-34.0); Mean Corpuscular HGB Conc 33.3 g/dL (31.5-36.5); Mean Platelet Volume 10.2 fL (9.1-12.4); NEUTROPHILS ABSOLUTE AUTO 3.12 K/mm3 (1.96-9.15); NEUTROPHILS PERCENT AUTO 77 % (41-73); Platelet Count 166 K/mm3 (150-400); RDW Standard Deviation 45.2 fL (35.1-46.3); White Blood Cell Count 4.03 K/mm3 (4.00-11.30)
[2019-06-30 05:23] LABS: Mean Corpuscular Volume 95 fL (80-100)
[2019-06-30 05:52] LABS: Magnesium, Blood 2.1 mg/dL (1.6-2.4)
[2019-06-30 05:55] LABS: Anion Gap 8 mmol/L (6-16); Blood Urea Nitrogen 13 mg/dL (8-24); Bun/Creatinine Ratio 14.5 (12.0-20.0); CO2, Blood 23 mmol/L (21-32); Calcium, Blood 8.2 mg/dL (8.5-10.1); Chloride, Blood 98 mmol/L (98-108); Glomerular Filtration Rate >60 (60-); Glucose, Blood 141 mg/dL (70-99); Potassium, Blood 4.5 mmol/L (3.5-5.5); Sodium, Blood 129 mmol/L (136-145)
[2019-06-30] MEDS ORDERED: Norco 5-325 Ta1 EACH PO (11:05)
--- NOTE | 2019-06-30 18:00 | NUR ---
SHIFT SUMMARY PT HAS HAD 4 BMS THIS SHIFT. MOSTLY SOFT, BUT MUCOUSY. C DIFF R/O ORDERED. AWAITING RESULTS. PT MEDICATED FOR PAIN ONCE THIS SHIFT. PT EVALED BY PT. SNF RECCOMENDATION. DC PLANNING COORDINATING. PT NON-WEIGHT BEARING TO R FOOT. BEDREST FOR NURSING STAFF DUE TO INABILITY TO KEEP WEIGHT OFF FOOT. NO OTHER CHANGES IN ASSESSMENT AT THIS TIME. VSS. WILL CONTINUE TO MONITOR UNTIL TURNOVER IS COMPLETE.
--- NOTE | 2019-07-01 06:10 | NUR ---
SUMMARY PT HAS SLEPT WELL T/O SHIFT. PT IS MORE ALERT THIS SHIFT. PTHAS BEEN ABLE TO STAND/ PIVOT TO BSC W/ ASSISTANCE. PT SLEPT MOST OF SHIFT. PT SLEEPING AND BREATHING EASY. CALL LIGHT IN REACH
--- NOTE | 2019-07-01 17:07 | NUR ---
SHIFT SUMMARY PT UP TO COMMODE TO VOID ONCE THIS SHIFT. PT REFUSED GETTING OUT OF BED SINCE. PT HAS HAD LIQUID STOOLS WITH GREAT URGENCY. PT SLEPT MOST THE DAY. REFUSED BREAKFAST & LUNCH. PT DRANK ONE ENSURE THIS SHIFT. PT BOTTOM RED DUE TO PARTIAL INCONT STOOLS. NO OTHER CHANGES IN ASSESSMENT AT THIS TIME. VSS. WILL CONTINUE TO MONITOR UNTIL TURNOVER IS COMPLETE.
[2019-07-02] MEDS ORDERED: Anti-Diarrheal2 MG PO (10:30)
--- NOTE | 2019-07-02 15:00 | NUR ---
PT REFUSING OT PT REFUSING TO BE SEEN BY OCCUPATIONAL THERAPY. PT IN FORMED THAT THERAPY IS IMPORTANT AND HER REFUSAL IS THE REASON SNF REFUSED HER. PT STATES SHE "DOESN'T CARE" & "IT WILL BE OKAY." PT AGAIN ENCOURAGED TO GET UP. PT INFORMED THAT SHE WILL NOT GET BETTER UNLESS SHE STARTS MOVING. PT AGAIN RESPONDED "IT WILL BE OKAY." PHYCH CONSULT SENT TO ER. WILL CONTINUE TO MONITOR.
--- NOTE | 2019-07-02 15:10 | NUR ---
UPDATED. PT INFORMED THAT PT WILL NOT BE DISCHARGED TODAY DUE TO SAFETY PROBLEMS.
--- NOTE | 2019-07-02 15:42 | NUR ---
PT REFUSED PHYSICAL THERAPY. STATES SHE DOES NOT WANT TO PARTICIPATE.
--- NOTE | 2019-07-02 17:16 | NUR ---
SHIFT SUMMARY PT DENIED SNF DUE TO REFUSAL TO GET OUT OF BED AND PARTICIPATE. PT REFUSED PT & OT THIS SHIFT. PT REFUSING TO GET OUT OF BED. PT HAS BEEN OUT OF BED ONCE THSI SHIFT TO USE COMMODE TO VOID. INCONT LIQUID DIARRHEA ONCE THIS SHIFT. IMODIUM GIVEN. DR. SINCLAIR AWARE OF DIARRHEA AND REFUSALS TO GET OUT OF BED. NO OTHER CHANGES IN ASSESSMENT AT THIS TIME. VSS. WILL CONTINUE TO MONITOR AND ENCOURAGE MOVEMENT TO GET OUT OF BED.
--- NOTE | 2019-07-03 00:10 | NUR ---
59 year old Female who was readmitted after being dc home after hospital stay for ETOH withdrawl and she was readmitted 06/29/19 with hyponatremia and ETOH withdrawl , rt ankle fx multiple falls and possible suicidal ideation. PT has been withdrawn but she denied current or recent plan for self harm. Suicide precautions were Dc and today PT had psych consult order given for continued withdrawn behavior refusing PT/OT. SW referral for safe dc plan. PT and has no Children. Spouse currently unemployed. PT watch take HS med and she swallowed Trazodone & immodium. She asks to have bedside table closer and she had a box fron nasal spray in bedside table. Found box contained 10 100 mg tabs of trazadone and found 1 pills in bed and 1 on floor. Removed RX and assessed for further personal belongings home RX , none found. PT denies taking any personal meds and is alert using call woodard etc. Will notify MD and check that Psych eval is going to be done soon. PT says she had attempted suicide 8 years ago by using her cats insulin. Neuro check WNL for PT off a few days on date, flat affect.
--- NOTE | 2019-07-03 00:38 | NUR ---
PT'S WAS SEEN COMING INTO THE PT'S ROOM. WAS OVER HEARD SAYING "I BROUGHT THE MEDICATIONS IN THAT YOU ASKED FOR." BY THE GLOST TILE SORTER. WHEN ASKED, THE PT AND THE PT'S DENIED THAT HE BROUGHT ANY MEDICATIONS IN AND DENIED HIM GIVING HER ANY MEDICATIONS. IT WAS EXPLAINED THAT WHILE SHE IS ADMITTED TO THE HOSPITAL SHE CANNOT TAKE ANY OF HER HOME MEDICATIONS RELATED TO SAFETY AND THE POSSIBLITLY OF OVERDOSE. THE AND PT STATES THAT THEY UNDERSTAND.
--- NOTE | 2019-07-03 00:57 | NUR ---
After we took meds which were at bedside from PT she denied taking any. Reviewed med rec and PT had home rx for 150 mg trazadone picked up 05/22/2019 and prior to that had 100 mg trazadone picked up 05/08/2019. Call TOP COLLAR BASTER Lo Robertson and discussed situation and PT loc neuro checks behavior and Psych eval pending. As I was on phone with TOP COLLAR BASTER to discuss PT possible self medicating her Spouse Irineo arrived and staff her him say I brought the meds you asked me to bring and when staff entered room he was giving her a sip of water. He denied bringing her RX and she denied taking any further RX. Educated PT and Spouse of concerns for taking additional rx as we had found 12 100 mg trazadone at bedside and removed it. They both verbalized understanding and we are going to search room again. TOP COLLAR BASTER denied need to restart suicide precautions. We have found no items at bedside PT may attempt self harm with and since PT was stable in Fib and tele was not present at shift change and had been returned to PCU Bioxx was ordered. PT unable to get up unassisted 2 max assist to BSC with FWW and gait belt. Voids large AMT x 1 . Psych eval pending. Discussed need for safe Dc plan. PT has refused SCDs and off coumadin due to multiple falls. Continue to observe closely and follow PSYCH consult recommendations.
--- NOTE | 2019-07-03 01:24 | NUR ---
when I entered room PT denies issues or needs but she picked up her tablet case and had more trazadone in there and she was observed attempting to take more meds. Stopped her by holding her lt hand and called business process modeler and we removed 3 tablets from her lt hand. Spouse called room and heard to say I can't bring you any more meds I will be arrested. Calling MD returning to SI precautions due to attempts repeated to take unautaurized rx we have ID as trazadone 100 mg in high dose. Spouse informed she is being moved to room with camera monitor and resumption of high risk suicide plan.
--- NOTE | 2019-07-03 02:33 | NUR ---
ASSUMED CARE OF PT. PT. APPEARS TO BE SLEEPING COMFORTABLY IN BED. NO APPARENT DISTRESS NOTED. CONT OXIMETRY PLACED ON L TOE. HR AND SATS WNL. WILL CONT TO MONITOR CLOSELY.
--- NOTE | 2019-07-03 02:52 | NUR ---
transfer report to ARIANA FERNANDO and transferred PT to room 346 after room mitigated for suicide ideation and precautions. PT was alert and awake and reportedly now resting with cont pulse on on and line of signt and remote camera monitoring for attempted overdose on trazadone. Retrieved 300 mg from PTs hand after she was searched and found to have 3 tabs stashed on tablet case. Removed personal belongings and kept line of sight as attempt to overdose exceed prescribed dose of trazadone. PT observed talking to Spouse % who said he was unable to bring her in anymore rx as he was told he could be arrested if he did. He was told she was being moved to room 346 for suicide precautions. She called Spouse back and said to put 3 more trazadone in his mouth and come in and kiss her. Ariana FERNANDO assumed care of PT 1 to 1 and discussed amt of known & unknown amt of trazadone taken and requested further guidance on safe dose amt which 400 mg was top dose potential effects and called DR Smith to address known and unknow ingestion and orders recieved for stat EKG BMP and mag level start LR at [address] Smith back with QC measurement. called for stat labs and stat EKG. Discussed with smelter charger. Continues with 1 to 1 line of sight.
--- NOTE | 2019-07-03 02:56 | NUR ---
PT. PLACED ON MODERATE SI PRECAUTIONS PER ORDER. PT. DENIES SI AT THIS TIME. SUICIDE ATTEMPT OBSERVED BY NURSING STAFF.
[2019-07-03 03:48] LABS: Anion Gap 5 mmol/L (6-16); Blood Urea Nitrogen 13 mg/dL (8-24); Bun/Creatinine Ratio 14.4 (12.0-20.0); CO2, Blood 29 mmol/L (21-32); Calcium, Blood 8.5 mg/dL (8.5-10.1); Chloride, Blood 104 mmol/L (98-108); Creatinine, Blood 0.91 mg/dL (0.40-1.00); Glomerular Filtration Rate >60 (60-); Glucose, Blood 127 mg/dL (70-99); Magnesium, Blood 1.7 mg/dL (1.6-2.4); Potassium, Blood 4.1 mmol/L (3.5-5.5); Sodium, Blood 138 mmol/L (136-145)
--- NOTE | 2019-07-03 04:36 | NUR ---
@2950- NOTIFIED DR. CARRINGTON RE ABNORMAL EKG. RECEIVED ORDER TO PLACE PT. ON TELEMETRY. PT. RESTING QUIETLY IN BED, NO APPARENT DISTRESS NOTED AND DENIES NEEDS AT THIS TIME. WILL CONT TO MONITOR.
--- NOTE | 2019-07-03 05:38 | NUR ---
SHIFT SUMMARY- PT. HAS BEEN RESTING COMFORTABLY IN BED. NO APPARENT DISTRESS NOTED. PT. DENIES ANY PAIN OR DISCOMFORT. PT. IS BEING MONITORED ON CAMERA FOR SI PRECAUTIONS. NO OTHER ACUTE CHANGES TO CONDITION. CALL LIGHT WITHIN REACH, SIDE RAILS UP X2, AND BED ALARM ON. WILL CONT TO MONITOR.
--- NOTE | 2019-07-03 09:11 | NUR ---
PT LYING IN BED AWAKENS TO VERBAL STIMULI. PT DENIES ANY SUICIDAL THOUGHTS AT THIS TIME. PT FLAT AND WITHDRAWN. PT COOPERAIVE WITH CARE. CAMERA ON AND SITTER NOW IN PLACE.
--- NOTE | 2019-07-03 11:14 | NUR ---
PT SPOUSE CAME IN TO SEE PT, NOTIFIED HIM THAT PT WAS NOT RECEIVING VISITORS AT THIS TIME. SPOUSE LEFT WITHOUT ANY QUESTION. PT ASKING TO BE SEEN BY THE PHYSICIAN AND IF NOT SHE IS CHECKING HERSELF OUT. SPOKE WITH DR MARIN WHO REPORTS HE WILL BE SEEING THE PT TODAY BUT WILL BE A WHILE, PER DR MARIN PT SHOULD BE PLACED ON A HOLD AND HE WILL SIGN TO AGREE. DR ONEIL NOTIFIED AND REPORTS HE WILL SEE PT AND PLACE THE HOLD AT THAT TIME.
--- NOTE | 2019-07-03 13:17 | NUR ---
PT PLACED ON INOVOLUNTARY HOLD. ORDERS SIGNED AND IN CHART. PT NOTIFIED AND CIVIL RIGHT SIGNED BY PATIENT.
--- NOTE | 2019-07-03 16:30 | NUR ---
SHIFT SUMMARY- PT A/OX4, PT REPORTS 5/10 PAIN TO BACK AND NECK THIS AM AND HAS DENIED ANY COMPLAINTS THE REST OF THE DAY. LS CLEAR, ON RA. TELE AFIB AT 74, TELE DC'D. SPLINT TO RIGHT ANKLE. PT HAS REFUSED TO GET OUT OF BED T/O THE DAY AND USES THE BEDPAN TO VOID. PT WITH FLAT AFFECT AND WITHDRAWN. PT HAS DENIED ANY SUICIDAL THOUGHTS T/O THE DAY. PT PLACED ON A INVOLUNTARY HOLD. SPOUSE IN TO SEE PT BUT WAS NOTIFIED THAT PT CANNOT HAVE VISITORS AT THIS TIME, SPOUSE DID LEAVE WITHOUT QUESTION. PT CAN BE IRRITABLE AT TIMES AND REPORTS SHE WAS GOING TO GET UP AND LEAVE AND OTHER TIMES SHE IS PLEASANT AND COOPERATIVE WITH CARE. DR MARIN CONSULTED. PT HAS BEEN A 1:1 SITTER T/O THE DAY WELL CAMERAS IN PLACE. NO OTHER ACUTE CHANGES THIS SHIFT.
--- NOTE | 2019-07-04 05:22 | NUR ---
SHIFT SUMMARY- PT. A&O, C/O GENERALIZED PAIN LAST NIGHT 11/15. MEDICATED PER EMAR. PT. APPEARED TO HAVE SLEPT COMFORTABLY T/O THE SHIFT. USED BEDPAN TO VOID. NEW ORDER LAST NIGHT IN PLACE FOR MODERATE SI RISK. 1:1 SITTER D/C'D, BUT PT. CONTS TO BE MONITORED ON CAMERA. RT LEG SPLINTED AND ELEVATED PER ORDER. IV FLUIDS INFUSING. NO ACUTE CHANGES TO CONDITION. CALL LIGHT WTIHIN REACH AND SIDE RAILS UP X2. WILL CONT TO MONITOR.
--- NOTE | 2019-07-04 15:05 | NUR ---
PT. DISCHARGED HOME WITH SPOUSE, H.H. TO FOLLOW UP AT HOME.
== END 2019-07-04 15:33 | disposition home health service (06) | DRG 641 ==
LOC: ER 09:24 → MEDS 09:25 → ENPENDDIS 06-30 10:00 → EDPENDDISTM 07-02 10:30 → EDPENDDISDT 07-02 10:30 → EDPENDDIS 07-02 10:30 → MEDS 07-03 02:05
PROVIDERS: Internal Medicine; Nurse Practitioner Acute Care; Physician Assistant; ADMIT Family Medicine
DX: E87.1 Hypo-osmolality and hyponatremia (principal); F10.239 Alcohol dependence with withdrawal, unspecified; E86.0 Dehydration; S82.61XA Displaced fracture of lateral malleolus of right fibula, initial encounter for closed fracture; W19.XXXA Unspecified fall, initial encounter; I48.0 Paroxysmal atrial fibrillation; I10 Essential (primary) hypertension; J45.909 Unspecified asthma, uncomplicated; E11.9 Type 2 diabetes mellitus without complications; E78.5 Hyperlipidemia, unspecified; F43.21 Adjustment disorder with depressed mood; R74.0 Nonspecific elevation of levels of transaminase and lactic acid dehydrogenase [LDH]; F10.229 Alcohol dependence with intoxication, unspecified; Y90.7 Blood alcohol level of 200-239 mg/100 ml; Z74.09 Other reduced mobility; Z88.5 Allergy status to narcotic agent; Z79.899 Other long term (current) drug therapy; Z79.01 Long term (current) use of anticoagulants; Z86.718 Personal history of other venous thrombosis and embolism; Z98.84 Bariatric surgery status
CPT/HCPCS: 29515; 36415; 73610; 80048; 80053; 81001; 82947; 83735; 84295; 85025; 85610; 87493; 93005; 93010; 94762; 96361; 96365-59; 96366; 96375; 96375-59; 96376; 97162; 97166; 97530; 97535; 99285-25; A9270-GY; G0378; G0480; J0360; J2405; J3411; J3475; J7030; J7042; J7120

== ENCOUNTER 2019-08-06 03:07 | Inpatient (IN) | payer OTHER ==
[~2019-08-06] VITALS: Ht 157.5 cm; Wt 89.3 kg
[~2019-08-06 03:07] MED LIST changes: +Anti-Diarrheal2 MG PO; +B-1100 M1 PO; +Norco 5-325 Ta1 EACH PO
[2019-08-06 04:25] LABS: Hematocrit 45.2 % (33.0-51.0); Hemoglobin 15.7 g/dL (11.5-16.0); LYMPHOCYTES ABSOLUTE AUTO 0.47 K/mm3 (0.84-5.20); LYMPHOCYTES PERCENT AUTO 3 % (21-46); MONOCYTES ABSOLUTE AUTO 1.09 K/mm3 (0.16-1.47); MONOCYTES PERCENT AUTO 7 % (4-13); Mean Corpuscular HGB 31.7 pg (26.0-34.0); Mean Corpuscular HGB Conc 34.7 g/dL (31.5-36.5); Mean Corpuscular Volume 91 fL (80-100); Mean Platelet Volume 12.5 fL (9.1-12.4); Platelet Count 63 K/mm3 (150-400); RDW Coefficient Variation 13.2 % (11.7-14.2); Red Blood Cell Count 4.95 M/mm3 (3.80-5.20); White Blood Cell Count 15.21 K/mm3 (4.00-11.30)
[2019-08-06 04:26] LABS: BASOPHILS ABSOLUTE AUTO 0.03 K/mm3 (0.00-0.23); BASOPHILS PERCENT AUTO 0 % (0-2); EOSINOPHILS PERCENT AUTO 0 % (0-6); IMMATURE GRAN ABSOLUTE AUTO 0.33 K/mm3 (0.00-0.10); IMMATURE GRAN PERCENT AUTO 2 % (0-1); NEUTROPHILS ABSOLUTE AUTO 13.29 K/mm3 (1.96-9.15); NEUTROPHILS PERCENT AUTO 87 % (41-73)
[2019-08-06 05:58] LABS: Acetaminophen, Random <2.0 ug/mL (10.0-30.0); Alanine Aminotransfer (ALT/SGP 47 U/L (12-78); Albumin, Blood 1.9 g/dL (3.4-5.0); Albumin/Globulin Ratio 0.5 (0.8-1.8); Aspartate Aminotrans (AST/SGOT 84 U/L (12-37); Bilirubin, Total 1.3 mg/dL (0.1-1.0); Blood Urea Nitrogen 41 mg/dL (8-24); Bun/Creatinine Ratio 12.5 (12.0-20.0); CO2, Blood 21 mmol/L (21-32); Calcium, Blood 8.5 mg/dL (8.5-10.1); Chloride, Blood 79 mmol/L (98-108); Creatinine, Blood 3.27 mg/dL (0.40-1.00); Ethanol (Alcohol), Blood, Med <3 mg/dL; Globulin, Blood 3.7 g/dL (2.2-4.0); Glomerular Filtration Rate 15 (60-); Glucose, Blood 235 mg/dL (70-99); Potassium, Blood 4.1 mmol/L (3.5-5.5); Salicylate 2.9 mg/dL (2.8-20.0); Total Protein, Blood 5.6 g/dL (6.4-8.2)
[2019-08-06 06:01] LABS: CPK Creatine Kinase 57 U/L (26-193); Creatine Kinase MB 1.1 ng/mL (0.0-3.6); Creatine Kinase MB Index 1.9 (0.0-4.0)
[2019-08-06 06:06] LABS: Alk Phos 109 U/L (50-136); Anion Gap 16 mmol/L (6-16); Sodium, Blood 116 mmol/L (136-145)
[2019-08-06 06:15] LABS: Source, Urine Clean Catch
[2019-08-06 06:19] LABS: Bilirubin, Urine Neg (Neg); Blood, Urine 4+ (Neg); Glucose Qualitative, Urine 1+ (Neg); Ketones, Urine 1+ (Neg); Leukocyte Esterase, Urine 2+ (Neg); Nitrite, Urine Neg (Neg); Protein, Urine 4+ (Neg); Specific Gravity, Urine 1.015 (1.003-1.022); Urobilinogen, Urine 1+ (Normal)
[2019-08-06 06:28] LABS: Appearance, Urine Hazy (Clear); Color, Urine Yellow (P-Yellow)
[2019-08-06 06:32] LABS: Bacteria Many /hpf; Squamous Epithelial Cells Rare /hpf (Few); White Blood Cells, Urine TNTC /hpf (0-5)
[2019-08-06 06:35] LABS: U Amphetamine Screen Not Detected; U Barbituate Screen Not Detected; U Benzodiazapine Screen Not Detected; U Cocaine Screen Not Detected; U Methadone Screen Not Detected; U Methamphetamine Screen Not Detected
[2019-08-06 06:36] LABS: U Buprenorphine Screen Not Detected; U Cannabinoids Screen Not Detected; U Opiates Screen DETECTED; U Oxycodone Screen Not Detected; U Phencyclidine Screen Not Detected; U Propoxyphene Screen Not Detected
[2019-08-06 08:25] LABS: Bun/Creatinine Ratio 14.4 (12.0-20.0); Calcium, Blood 8.4 mg/dL (8.5-10.1); Creatinine, Blood 3.34 mg/dL (0.40-1.00)
[2019-08-06 14:29] LABS: Bun/Creatinine Ratio 14.3 (12.0-20.0); Calcium, Blood 8.3 mg/dL (8.5-10.1); Creatinine, Blood 3.64 mg/dL (0.40-1.00); Potassium, Blood 3.6 mmol/L (3.5-5.5)
[2019-08-06 19:04] LABS: Bun/Creatinine Ratio 13.6 (12.0-20.0); Calcium, Blood 8.3 mg/dL (8.5-10.1); Creatinine, Blood 3.74 mg/dL (0.40-1.00); Potassium, Blood 4.1 mmol/L (3.5-5.5)
[2019-08-06 23:07] LABS: Source, Urine Clean Catch
[2019-08-06 23:10] LABS: Bilirubin, Urine Neg (Neg); Blood, Urine 5+ (Neg); Glucose Qualitative, Urine 1+ (Neg); Ketones, Urine 1+ (Neg); Leukocyte Esterase, Urine 2+ (Neg); Nitrite, Urine Pos (Neg); Protein, Urine 4+ (Neg); Urobilinogen, Urine NORM (Normal)
[2019-08-06 23:19] LABS: Appearance, Urine Clear (Clear); Color, Urine Amber (P-Yellow)
[2019-08-06 23:24] LABS: Bacteria Few /hpf; Squamous Epithelial Cells Rare /hpf (Few)
[2019-08-07 00:02] LABS: Eosinophils-Raw #,Urine 5
[2019-08-07 00:36] LABS: Bun/Creatinine Ratio 13.7 (12.0-20.0); Calcium, Blood 8.2 mg/dL (8.5-10.1); Creatinine, Blood 4.09 mg/dL (0.40-1.00); Potassium, Blood 3.7 mmol/L (3.5-5.5)
[2019-08-07 06:16] LABS: BASOPHILS ABSOLUTE AUTO 0.08 K/mm3 (0.00-0.23); BASOPHILS PERCENT AUTO 1 % (0-2); Hematocrit 37.9 % (33.0-51.0); Hemoglobin 13.5 g/dL (11.5-16.0); LYMPHOCYTES ABSOLUTE AUTO 0.15 K/mm3 (0.84-5.20); LYMPHOCYTES PERCENT AUTO 1 % (21-46); MONOCYTES ABSOLUTE AUTO 1.37 K/mm3 (0.16-1.47); MONOCYTES PERCENT AUTO 10 % (4-13); Mean Corpuscular HGB Conc 35.6 g/dL (31.5-36.5); Mean Corpuscular Volume 90 fL (80-100); Mean Platelet Volume 12.7 fL (9.1-12.4); Platelet Count 62 K/mm3 (150-400); RDW Coefficient Variation 13.8 % (11.7-14.2); Red Blood Cell Count 4.22 M/mm3 (3.80-5.20); White Blood Cell Count 13.42 K/mm3 (4.00-11.30)
[2019-08-07 06:19] LABS: EOSINOPHILS ABSOLUTE AUTO 0.01 K/mm3 (0.00-0.68); EOSINOPHILS PERCENT AUTO 0 % (0-6); IMMATURE GRAN ABSOLUTE AUTO 0.56 K/mm3 (0.00-0.10); IMMATURE GRAN PERCENT AUTO 4 % (0-1); NEUTROPHILS ABSOLUTE AUTO 11.25 K/mm3 (1.96-9.15); NEUTROPHILS PERCENT AUTO 84 % (41-73)
[2019-08-07 06:32] LABS: Albumin, Blood 1.7 g/dL (3.4-5.0); Albumin/Globulin Ratio 0.4 (0.8-1.8); Bilirubin, Total 0.8 mg/dL (0.1-1.0); Bun/Creatinine Ratio 13.9 (12.0-20.0); Calcium, Blood 8.7 mg/dL (8.5-10.1); Creatinine, Blood 4.33 mg/dL (0.40-1.00); Globulin, Blood 3.8 g/dL (2.2-4.0); Potassium, Blood 4.1 mmol/L (3.5-5.5); Total Protein, Blood 5.5 g/dL (6.4-8.2)
[2019-08-07 12:53] LABS: PCO2 Arterial 38.5 mmHg (35-45); PO2 Arterial 66.5 mmHg (80-100); pH Blood Arterial 7.32 (7.35-7.45)
[2019-08-07 13:38] LABS: Bun/Creatinine Ratio 14.1 (12.0-20.0); Calcium, Blood 8.9 mg/dL (8.5-10.1); Creatinine, Blood 4.69 mg/dL (0.40-1.00); Potassium, Blood 4.2 mmol/L (3.5-5.5)
[2019-08-07 22:27] LABS: CO2, Blood 22 mmol/L (21-32); Sodium, Blood 123 mmol/L (136-145)
[2019-08-08 03:53] LABS: BASOPHILS PERCENT AUTO 1 % (0-2); Hematocrit 33.7 % (33.0-51.0); Hemoglobin 11.8 g/dL (11.5-16.0); LYMPHOCYTES ABSOLUTE AUTO 0.19 K/mm3 (0.84-5.20); LYMPHOCYTES PERCENT AUTO 1 % (21-46); MONOCYTES ABSOLUTE AUTO 1.47 K/mm3 (0.16-1.47); MONOCYTES PERCENT AUTO 8 % (4-13); Mean Corpuscular HGB 31.6 pg (26.0-34.0); Mean Corpuscular Volume 90 fL (80-100); Mean Platelet Volume 12.5 fL (9.1-12.4); Platelet Count 63 K/mm3 (150-400); RDW Coefficient Variation 14.1 % (11.7-14.2); RDW Standard Deviation 46.7 fL (35.1-46.3); Red Blood Cell Count 3.73 M/mm3 (3.80-5.20); White Blood Cell Count 19.14 K/mm3 (4.00-11.30)
[2019-08-08 03:55] LABS: EOSINOPHILS ABSOLUTE AUTO 0.04 K/mm3 (0.00-0.68); EOSINOPHILS PERCENT AUTO 0 % (0-6); IMMATURE GRAN ABSOLUTE AUTO 0.24 K/mm3 (0.00-0.10); IMMATURE GRAN PERCENT AUTO 1 % (0-1); NEUTROPHILS PERCENT AUTO 89 % (41-73)
[2019-08-08 04:09] LABS: BAND PERCENT MAN 15 % (0-8); BASOPHILS PERCENT MAN 0 % (0-2); EOSINOPHILS ABSOLUTE MAN 0.38 K/mm3 (0.00-0.68); EOSINOPHILS PERCENT MAN 2 % (0-6); LYMPHOCYTES ABSOLUTE MAN 0.57 K/mm3 (0.84-5.20); LYMPHOCYTES PERCENT MAN 3 % (21-46); METAMYELOCYTE ABSOLUTE MAN 0.38 K/mm3 (0.00-0.00); METAMYELOCYTE PERCENT MAN 2 % (0-0); MONOCYTES ABSOLUTE MAN 0.57 K/mm3 (0.16-1.47); MONOCYTES PERCENT MAN 3 % (4-13); NEUTROPHILS ABSOLUTE MAN 17.22 K/mm3 (1.96-9.15); SEG NEUTROPHILS PERCENT MAN 75 % (41-73); TOTAL CELLS COUNTED 100
[2019-08-08 04:14] LABS: Albumin, Blood 1.7 g/dL (3.4-5.0); Anion Gap 13 mmol/L (6-16); Blood Urea Nitrogen 76 mg/dL (8-24); Bun/Creatinine Ratio 15.4 (12.0-20.0); CO2, Blood 22 mmol/L (21-32); Calcium, Blood 8.5 mg/dL (8.5-10.1); Chloride, Blood 89 mmol/L (98-108); Creatinine, Blood 4.95 mg/dL (0.40-1.00); Glomerular Filtration Rate 9 (60-); Glucose, Blood 97 mg/dL (70-99); Magnesium, Blood 2.8 mg/dL (1.6-2.4); Phosphorus, Blood 4.5 mg/dL (2.5-4.9); Potassium, Blood 4.2 mmol/L (3.5-5.5); Sodium, Blood 124 mmol/L (136-145)
[2019-08-08 16:10] LABS: A/G RATIO 0.8 (0.7-1.7); ALBUMIN 1.9 g/dL (2.9-4.4); ALPHA-1-GLOBULIN 0.3 g/dL (0.0-0.4); ALPHA-2-GLOBULIN 0.9 g/dL (0.4-1.0); BETA GLOBULIN 0.6 g/dL (0.7-1.3); GAMMA GLOBULIN 0.5 g/dL (0.4-1.8); GLOBULIN, TOTAL 2.3 g/dL (2.2-3.9); M-SPIKE Not Observed g/dL (Not Observed); PROTEIN, TOTAL, SERUM 4.2 g/dL (6.0-8.5)
[2019-08-09 04:10] LABS: Hemoglobin 12.2 g/dL (11.5-16.0); Mean Corpuscular HGB Conc 35.9 g/dL (31.5-36.5); Mean Corpuscular Volume 89 fL (80-100); Mean Platelet Volume 11.8 fL (9.1-12.4); Platelet Count 71 K/mm3 (150-400); RDW Coefficient Variation 14.2 % (11.7-14.2); RDW Standard Deviation 46.5 fL (35.1-46.3); Red Blood Cell Count 3.81 M/mm3 (3.80-5.20); White Blood Cell Count 22.24 K/mm3 (4.00-11.30)
[2019-08-09 04:25] LABS: Albumin, Blood 1.5 g/dL (3.4-5.0); Anion Gap 9 mmol/L (6-16); Blood Urea Nitrogen 62 mg/dL (8-24); Bun/Creatinine Ratio 16.9 (12.0-20.0); CO2, Blood 28 mmol/L (21-32); Calcium, Blood 8.3 mg/dL (8.5-10.1); Chloride, Blood 94 mmol/L (98-108); Creatinine, Blood 3.66 mg/dL (0.40-1.00); Glomerular Filtration Rate 13 (60-); Glucose, Blood 174 mg/dL (70-99); Magnesium, Blood 2.5 mg/dL (1.6-2.4); Phosphorus, Blood 3.5 mg/dL (2.5-4.9); Potassium, Blood 3.8 mmol/L (3.5-5.5); Sodium, Blood 131 mmol/L (136-145)
[2019-08-09 04:52] LABS: BAND PERCENT MAN 8 % (0-8); BASOPHILS PERCENT MAN 0 % (0-2); EOSINOPHILS PERCENT MAN 0 % (0-6); LYMPHOCYTES ABSOLUTE MAN 0.44 K/mm3 (0.84-5.20); LYMPHOCYTES PERCENT MAN 2 % (21-46); MONOCYTES ABSOLUTE MAN 0.44 K/mm3 (0.16-1.47); MONOCYTES PERCENT MAN 2 % (4-13); NEUTROPHILS ABSOLUTE MAN 21.35 K/mm3 (1.96-9.15); SEG NEUTROPHILS PERCENT MAN 88 % (41-73); TOTAL CELLS COUNTED 100
[2019-08-10 03:07] LABS: HBSAG SCREEN Negative (Negative); HEP A AB, IGM Negative (Negative); HEP B CORE AB, IGM Negative (Negative); HEP C VIRUS AB <0.1 (0.0-0.9)
[2019-08-10 05:23] LABS: BASOPHILS ABSOLUTE AUTO 0.03 K/mm3 (0.00-0.23); BASOPHILS PERCENT AUTO 0 % (0-2); EOSINOPHILS ABSOLUTE AUTO 0.03 K/mm3 (0.00-0.68); EOSINOPHILS PERCENT AUTO 0 % (0-6); Hematocrit 33.4 % (33.0-51.0); Hemoglobin 11.7 g/dL (11.5-16.0); IMMATURE GRAN ABSOLUTE AUTO 0.35 K/mm3 (0.00-0.10); IMMATURE GRAN PERCENT AUTO 2 % (0-1); LYMPHOCYTES ABSOLUTE AUTO 0.39 K/mm3 (0.84-5.20); LYMPHOCYTES PERCENT AUTO 2 % (21-46); MONOCYTES ABSOLUTE AUTO 1.19 K/mm3 (0.16-1.47); MONOCYTES PERCENT AUTO 6 % (4-13); Mean Corpuscular HGB 31.6 pg (26.0-34.0); Mean Corpuscular Volume 90 fL (80-100); Mean Platelet Volume 11.6 fL (9.1-12.4); NEUTROPHILS ABSOLUTE AUTO 16.64 K/mm3 (1.96-9.15); NEUTROPHILS PERCENT AUTO 89 % (41-73); Platelet Count 89 K/mm3 (150-400); RDW Coefficient Variation 14.6 % (11.7-14.2); RDW Standard Deviation 48.6 fL (35.1-46.3); White Blood Cell Count 18.63 K/mm3 (4.00-11.30)
[2019-08-10 05:39] LABS: Albumin, Blood 1.5 g/dL (3.4-5.0); Anion Gap 8 mmol/L (6-16); Blood Urea Nitrogen 67 mg/dL (8-24); CO2, Blood 29 mmol/L (21-32); Calcium, Blood 8.5 mg/dL (8.5-10.1); Chloride, Blood 96 mmol/L (98-108); Creatinine, Blood 3.04 mg/dL (0.40-1.00); Glomerular Filtration Rate 17 (60-); Glucose, Blood 253 mg/dL (70-99); Magnesium, Blood 2.5 mg/dL (1.6-2.4); Phosphorus, Blood 3.3 mg/dL (2.5-4.9); Potassium, Blood 3.9 mmol/L (3.5-5.5); Sodium, Blood 133 mmol/L (136-145)
[2019-08-11 04:34] LABS: BASOPHILS ABSOLUTE AUTO 0.04 K/mm3 (0.00-0.23); BASOPHILS PERCENT AUTO 0 % (0-2); EOSINOPHILS ABSOLUTE AUTO 0.04 K/mm3 (0.00-0.68); EOSINOPHILS PERCENT AUTO 0 % (0-6); Hemoglobin 12.1 g/dL (11.5-16.0); IMMATURE GRAN ABSOLUTE AUTO 0.41 K/mm3 (0.00-0.10); IMMATURE GRAN PERCENT AUTO 3 % (0-1); LYMPHOCYTES ABSOLUTE AUTO 0.47 K/mm3 (0.84-5.20); LYMPHOCYTES PERCENT AUTO 3 % (21-46); MONOCYTES ABSOLUTE AUTO 0.98 K/mm3 (0.16-1.47); MONOCYTES PERCENT AUTO 6 % (4-13); Mean Corpuscular HGB 31.3 pg (26.0-34.0); Mean Corpuscular HGB Conc 33.6 g/dL (31.5-36.5); Mean Platelet Volume 12.3 fL (9.1-12.4); NEUTROPHILS PERCENT AUTO 88 % (41-73); Platelet Count 106 K/mm3 (150-400); RDW Coefficient Variation 14.9 % (11.7-14.2); RDW Standard Deviation 51.8 fL (35.1-46.3); Red Blood Cell Count 3.86 M/mm3 (3.80-5.20); White Blood Cell Count 16.54 K/mm3 (4.00-11.30)
[2019-08-11 04:36] LABS: Mean Corpuscular Volume 93 fL (80-100)
[2019-08-11 04:50] LABS: Albumin, Blood 1.5 g/dL (3.4-5.0); Anion Gap 9 mmol/L (6-16); Blood Urea Nitrogen 72 mg/dL (8-24); Bun/Creatinine Ratio 24.4 (12.0-20.0); CO2, Blood 27 mmol/L (21-32); Calcium, Blood 8.4 mg/dL (8.5-10.1); Chloride, Blood 94 mmol/L (98-108); Creatinine, Blood 2.95 mg/dL (0.40-1.00); Glomerular Filtration Rate 17 (60-); Glucose, Blood 238 mg/dL (70-99); Magnesium, Blood 2.4 mg/dL (1.6-2.4); Phosphorus, Blood 4.4 mg/dL (2.5-4.9); Potassium, Blood 4.2 mmol/L (3.5-5.5); Sodium, Blood 130 mmol/L (136-145)
[2019-08-12 04:01] LABS: BASOPHILS ABSOLUTE AUTO 0.03 K/mm3 (0.00-0.23); BASOPHILS PERCENT AUTO 0 % (0-2); EOSINOPHILS ABSOLUTE AUTO 0.02 K/mm3 (0.00-0.68); EOSINOPHILS PERCENT AUTO 0 % (0-6); Hematocrit 33.9 % (33.0-51.0); Hemoglobin 11.6 g/dL (11.5-16.0); IMMATURE GRAN ABSOLUTE AUTO 0.37 K/mm3 (0.00-0.10); IMMATURE GRAN PERCENT AUTO 2 % (0-1); LYMPHOCYTES ABSOLUTE AUTO 0.48 K/mm3 (0.84-5.20); LYMPHOCYTES PERCENT AUTO 3 % (21-46); MONOCYTES ABSOLUTE AUTO 0.82 K/mm3 (0.16-1.47); MONOCYTES PERCENT AUTO 5 % (4-13); Mean Corpuscular HGB 31.3 pg (26.0-34.0); Mean Corpuscular HGB Conc 34.2 g/dL (31.5-36.5); Mean Corpuscular Volume 91 fL (80-100); Mean Platelet Volume 11.7 fL (9.1-12.4); NEUTROPHILS ABSOLUTE AUTO 15.85 K/mm3 (1.96-9.15); NEUTROPHILS PERCENT AUTO 90 % (41-73); Platelet Count 134 K/mm3 (150-400); RDW Coefficient Variation 14.9 % (11.7-14.2); RDW Standard Deviation 50.3 fL (35.1-46.3); Red Blood Cell Count 3.71 M/mm3 (3.80-5.20); White Blood Cell Count 17.57 K/mm3 (4.00-11.30)
[2019-08-12 04:22] LABS: Albumin, Blood 1.5 g/dL (3.4-5.0); Anion Gap 12 mmol/L (6-16); Blood Urea Nitrogen 102 mg/dL (8-24); Bun/Creatinine Ratio 25.2 (12.0-20.0); CO2, Blood 24 mmol/L (21-32); Calcium, Blood 8.1 mg/dL (8.5-10.1); Chloride, Blood 94 mmol/L (98-108); Creatinine, Blood 4.05 mg/dL (0.40-1.00); Glomerular Filtration Rate 12 (60-); Glucose, Blood 145 mg/dL (70-99); Magnesium, Blood 2.3 mg/dL (1.6-2.4); Phosphorus, Blood 5.9 mg/dL (2.5-4.9); Potassium, Blood 4.4 mmol/L (3.5-5.5); Sodium, Blood 130 mmol/L (136-145)
[2019-08-13 04:01] LABS: BASOPHILS ABSOLUTE AUTO 0.02 K/mm3 (0.00-0.23); BASOPHILS PERCENT AUTO 0 % (0-2); EOSINOPHILS ABSOLUTE AUTO 0.01 K/mm3 (0.00-0.68); EOSINOPHILS PERCENT AUTO 0 % (0-6); Hematocrit 33.5 % (33.0-51.0); Hemoglobin 11.2 g/dL (11.5-16.0); IMMATURE GRAN ABSOLUTE AUTO 0.24 K/mm3 (0.00-0.10); IMMATURE GRAN PERCENT AUTO 2 % (0-1); LYMPHOCYTES ABSOLUTE AUTO 0.33 K/mm3 (0.84-5.20); LYMPHOCYTES PERCENT AUTO 2 % (21-46); MONOCYTES ABSOLUTE AUTO 0.88 K/mm3 (0.16-1.47); MONOCYTES PERCENT AUTO 6 % (4-13); Mean Corpuscular HGB Conc 33.4 g/dL (31.5-36.5); Mean Corpuscular Volume 93 fL (80-100); Mean Platelet Volume 11.4 fL (9.1-12.4); NEUTROPHILS ABSOLUTE AUTO 13.75 K/mm3 (1.96-9.15); NEUTROPHILS PERCENT AUTO 90 % (41-73); Platelet Count 159 K/mm3 (150-400); RDW Coefficient Variation 14.6 % (11.7-14.2); RDW Standard Deviation 49.8 fL (35.1-46.3); Red Blood Cell Count 3.61 M/mm3 (3.80-5.20); White Blood Cell Count 15.23 K/mm3 (4.00-11.30)
[2019-08-13 04:24] LABS: Albumin, Blood 1.6 g/dL (3.4-5.0); Anion Gap 12 mmol/L (6-16); Blood Urea Nitrogen 82 mg/dL (8-24); CO2, Blood 26 mmol/L (21-32); Calcium, Blood 7.8 mg/dL (8.5-10.1); Chloride, Blood 97 mmol/L (98-108); Creatinine, Blood 3.56 mg/dL (0.40-1.00); Glomerular Filtration Rate 14 (60-); Glucose, Blood 219 mg/dL (70-99); Magnesium, Blood 2.2 mg/dL (1.6-2.4); Phosphorus, Blood 6.4 mg/dL (2.5-4.9); Sodium, Blood 135 mmol/L (136-145)
[2019-08-13] MEDS ORDERED: LOSA50 PO (11:47)
[2019-08-13] MEDS ORDERED: ALBU90OI INH (11:54)
[2019-08-13] MEDS ORDERED: CEPH500 PO (11:54)
[2019-08-13] MEDS ORDERED: HYDR10 PO (11:57)
[2019-08-13] MEDS ORDERED: Humalog100 UNIT/3 SC (11:59)
[2019-08-13] MEDS ORDERED: Culturelle1 CAP PO (12:00)
[2019-08-13] MEDS ORDERED: MELA3 PO (12:01)
[2019-08-13] MEDS ORDERED: ONDA4ODT SL (12:02)
[2019-08-13] MEDS ORDERED: METR500 PO (12:02)
[2019-08-13] MEDS ORDERED: SODIUM CHLORI PO (12:03)
[2019-08-13] MEDS ORDERED: TRAM50 PO (12:04)
== END 2019-08-13 13:25 | disposition home health service (06) | DRG 674 ==
LOC: ER 03:07 → PCU 06:28 → MEDS 08-11 13:30 → ENPENDDIS 08-13 11:27 → MEDS 08-13 13:25
PROVIDERS: Emergency Medicine; Family Medicine; Internal Medicine; Internal Medicine Nephrology; ADMIT Internal Medicine
PROC: 02HV33Z Insertion of Infusion Device into Superior Vena Cava, Percutaneous Approach (ICD-10-PCS; principal; 2019-08-08)
PROC: 0JH63XZ Insertion of Tunneled Vascular Access Device into Chest Subcutaneous Tissue and Fascia, Percutaneous Approach (ICD-10-PCS; 2019-08-08)
PROC: 5A1D70Z Performance of Urinary Filtration, Intermittent, Less than 6 Hours Per Day (ICD-10-PCS; 2019-08-08)
DX: N17.9 Acute kidney failure, unspecified (principal); F10.239 Alcohol dependence with withdrawal, unspecified; E87.1 Hypo-osmolality and hyponatremia; N12 Tubulo-interstitial nephritis, not specified as acute or chronic; E11.9 Type 2 diabetes mellitus without complications; I10 Essential (primary) hypertension; E78.5 Hyperlipidemia, unspecified; Z98.84 Bariatric surgery status; J45.909 Unspecified asthma, uncomplicated; Z86.718 Personal history of other venous thrombosis and embolism; E86.0 Dehydration; M54.9 Dorsalgia, unspecified; G89.29 Other chronic pain; I95.9 Hypotension, unspecified; G47.00 Insomnia, unspecified; E88.09 Other disorders of plasma-protein metabolism, not elsewhere classified; Z79.4 Long term (current) use of insulin; Y90.0 Blood alcohol level of less than 20 mg/100 ml
CPT/HCPCS: 36415; 36558; 36600; 51703; 71045; 76770; 76937; 80048; 80053; 80069; 80074; 81001; 82140; 82374; 82533; 82550; 82553; 82803; 82947; 83605; 83735; 83930; 84145; 84165; 84295; 84443; 84550; 85025; 86317; 87040; 87077; 87086; 87186; 87205; 93005; 93010; 94640; 94667; 94760; 96360; 96361; 96365; 96367; 97110; 97116; 97162; 97166; 97530; 99285-25; A9270-GY; C1750; C1751; C1769; G0480; J0360; J0696; J1644; J1650; J3411; J3475; J7030; J7040; J7050; J7120; J7131; P9046; P9612

== ENCOUNTER 2019-08-14 10:16 | Emergency (ER) | payer OTHER ==
[~2019-08-14] VITALS: Ht 157.5 cm; Wt 81.7 kg
[~2019-08-14 10:16] MED LIST changes: +ALBU90OI INH; +CEPH500 PO; +Culturelle1 CAP PO; +HYDR10 PO; +Humalog100 UNIT/3 SC; +LOSA50 PO; +MELA3 PO; +METR500 PO; +ONDA4ODT SL; +SODIUM CHLORI PO; +TRAM50 PO
[2019-08-14 13:06] LABS: BASOPHILS ABSOLUTE AUTO 0.01 K/mm3 (0.00-0.23); BASOPHILS PERCENT AUTO 0 % (0-2); EOSINOPHILS PERCENT AUTO 0 % (0-6); Hemoglobin 11.6 g/dL (11.5-16.0); IMMATURE GRAN ABSOLUTE AUTO 0.11 K/mm3 (0.00-0.10); IMMATURE GRAN PERCENT AUTO 1 % (0-1); LYMPHOCYTES PERCENT AUTO 2 % (21-46); MONOCYTES ABSOLUTE AUTO 0.56 K/mm3 (0.16-1.47); MONOCYTES PERCENT AUTO 4 % (4-13); Mean Corpuscular HGB 31.8 pg (26.0-34.0); Mean Corpuscular HGB Conc 34.1 g/dL (31.5-36.5); Mean Corpuscular Volume 93 fL (80-100); Mean Platelet Volume 11.3 fL (9.1-12.4); NEUTROPHILS ABSOLUTE AUTO 12.87 K/mm3 (1.96-9.15); NEUTROPHILS PERCENT AUTO 94 % (41-73); Platelet Count 195 K/mm3 (150-400); RDW Coefficient Variation 14.3 % (11.7-14.2); RDW Standard Deviation 49.3 fL (35.1-46.3); Red Blood Cell Count 3.65 M/mm3 (3.80-5.20); White Blood Cell Count 13.75 K/mm3 (4.00-11.30)
[2019-08-14 13:33] LABS: Alanine Aminotransfer (ALT/SGP 19 U/L (12-78); Albumin, Blood 1.8 g/dL (3.4-5.0); Albumin/Globulin Ratio 0.5 (0.8-1.8); Alk Phos 139 U/L (50-136); Anion Gap 11 mmol/L (6-16); Aspartate Aminotrans (AST/SGOT 27 U/L (12-37); Bilirubin, Total 0.6 mg/dL (0.1-1.0); Blood Urea Nitrogen 67 mg/dL (8-24); Bun/Creatinine Ratio 18.4 (12.0-20.0); CO2, Blood 27 mmol/L (21-32); Calcium, Blood 8.1 mg/dL (8.5-10.1); Chloride, Blood 94 mmol/L (98-108); Creatinine, Blood 3.64 mg/dL (0.40-1.00); Globulin, Blood 3.3 g/dL (2.2-4.0); Glomerular Filtration Rate 14 (60-); Glucose, Blood 219 mg/dL (70-99); Potassium, Blood 3.6 mmol/L (3.5-5.5); Sodium, Blood 132 mmol/L (136-145); Total Protein, Blood 5.1 g/dL (6.4-8.2); Troponin I <0.015 ng/mL (0.000-0.040)
== END 2019-08-14 15:34 | disposition home or self-care (01) ==
LOC: ER 10:16
PROVIDERS: Emergency Medicine
DX: J90 Pleural effusion, not elsewhere classified (principal); N28.9 Disorder of kidney and ureter, unspecified; F10.20 Alcohol dependence, uncomplicated; I10 Essential (primary) hypertension; E11.9 Type 2 diabetes mellitus without complications; Z86.711 Personal history of pulmonary embolism; Z79.4 Long term (current) use of insulin; Z79.899 Other long term (current) drug therapy
CPT/HCPCS: 71045; 71260; 80053; 83880; 84484; 85025; 85379; 93005; 93010; 94640; 94664; 99285-25; Q9967

== ENCOUNTER 2019-08-22 11:12 | Emergency (ER) | payer OTHER ==
[~2019-08-22] VITALS: Ht 167.6 cm; Wt 72.6 kg
[2019-08-22 12:12] LABS: BASOPHILS ABSOLUTE AUTO 0.02 K/mm3 (0.00-0.23); BASOPHILS PERCENT AUTO 0 % (0-2); EOSINOPHILS ABSOLUTE AUTO 0.02 K/mm3 (0.00-0.68); EOSINOPHILS PERCENT AUTO 0 % (0-6); Hematocrit 36.3 % (33.0-51.0); Hemoglobin 11.9 g/dL (11.5-16.0); IMMATURE GRAN ABSOLUTE AUTO 0.17 K/mm3 (0.00-0.10); IMMATURE GRAN PERCENT AUTO 1 % (0-1); LYMPHOCYTES ABSOLUTE AUTO 0.67 K/mm3 (0.84-5.20); LYMPHOCYTES PERCENT AUTO 6 % (21-46); MONOCYTES ABSOLUTE AUTO 0.73 K/mm3 (0.16-1.47); MONOCYTES PERCENT AUTO 6 % (4-13); Mean Corpuscular HGB 31.1 pg (26.0-34.0); Mean Corpuscular HGB Conc 32.8 g/dL (31.5-36.5); Mean Corpuscular Volume 95 fL (80-100); Mean Platelet Volume 11.5 fL (9.1-12.4); NEUTROPHILS PERCENT AUTO 87 % (41-73); Platelet Count 270 K/mm3 (150-400); RDW Coefficient Variation 13.2 % (11.7-14.2); RDW Standard Deviation 46.1 fL (35.1-46.3); Red Blood Cell Count 3.83 M/mm3 (3.80-5.20); White Blood Cell Count 12.01 K/mm3 (4.00-11.30)
[2019-08-22 12:24] LABS: Albumin, Blood 2.5 g/dL (3.4-5.0); Albumin/Globulin Ratio 0.5 (0.8-1.8); Bilirubin, Total 0.9 mg/dL (0.1-1.0); Bun/Creatinine Ratio 6.3 (12.0-20.0); Calcium, Blood 8.1 mg/dL (8.5-10.1); Creatinine, Blood 1.91 mg/dL (0.40-1.00); Globulin, Blood 4.6 g/dL (2.2-4.0); Potassium, Blood 2.8 mmol/L (3.5-5.5); Total Protein, Blood 7.1 g/dL (6.4-8.2)
== END 2019-08-22 12:51 | disposition home or self-care (01) ==
LOC: ER 11:12
PROVIDERS: Emergency Medicine
DX: I95.9 Hypotension, unspecified (principal); E87.6 Hypokalemia; I48.20 Chronic atrial fibrillation, unspecified; I10 Essential (primary) hypertension; E11.9 Type 2 diabetes mellitus without complications; Z86.718 Personal history of other venous thrombosis and embolism; Z79.899 Other long term (current) drug therapy; Z79.4 Long term (current) use of insulin; Z79.51 Long term (current) use of inhaled steroids; Z99.2 Dependence on renal dialysis
CPT/HCPCS: 71046; 80053; 85025; 93005; 93010; 99285-25

== ENCOUNTER 2019-08-24 09:15 | Emergency (ER) | payer OTHER ==
[~2019-08-24] VITALS: Ht 157.5 cm; Wt 79.4 kg
[2019-08-24] MEDS ORDERED: MIDO5 PO (09:36)
== END 2019-08-24 11:27 | disposition home or self-care (01) ==
LOC: ER 09:15
DX: I82.512 Chronic embolism and thrombosis of left femoral vein (principal); I10 Essential (primary) hypertension; I48.91 Unspecified atrial fibrillation; J45.909 Unspecified asthma, uncomplicated; E11.9 Type 2 diabetes mellitus without complications; Z79.899 Other long term (current) drug therapy; Z95.1 Presence of aortocoronary bypass graft; Z79.4 Long term (current) use of insulin
CPT/HCPCS: 93971; 99284-25

== ENCOUNTER 2019-09-26 00:13 | Day surgery (SDC) | payer OTHER ==
[~2019-09-26 00:13] MED LIST changes: +MIDO5 PO
== END 2019-09-26 22:46 | disposition home or self-care (01) ==
LOC: ATC 00:13
DX: Z45.2 Encounter for adjustment and management of vascular access device (principal); N18.6 End stage renal disease; D63.1 Anemia in chronic kidney disease; N25.81 Secondary hyperparathyroidism of renal origin; E46 Unspecified protein-calorie malnutrition; Z99.2 Dependence on renal dialysis
CPT/HCPCS: 36415; 36430; 86850; 86900; 86901; 86923; J7050; P9016

== ENCOUNTER 2019-10-17 11:08 | Emergency (ER) | payer OTHER ==
[~2019-10-17] VITALS: Ht 157.5 cm; Wt 79.4 kg
[2019-10-17 11:51] LABS: BASOPHILS ABSOLUTE AUTO 0.07 K/mm3 (0.00-0.23); BASOPHILS PERCENT AUTO 1 % (0-2); EOSINOPHILS PERCENT AUTO 1 % (0-6); Hematocrit 38.7 % (33.0-51.0); Hemoglobin 12.1 g/dL (11.5-16.0); IMMATURE GRAN ABSOLUTE AUTO 0.03 K/mm3 (0.00-0.10); IMMATURE GRAN PERCENT AUTO 0 % (0-1); LYMPHOCYTES ABSOLUTE AUTO 0.78 K/mm3 (0.84-5.20); LYMPHOCYTES PERCENT AUTO 10 % (21-46); MONOCYTES PERCENT AUTO 6 % (4-13); Mean Corpuscular HGB 30.5 pg (26.0-34.0); Mean Corpuscular HGB Conc 31.3 g/dL (31.5-36.5); Mean Corpuscular Volume 98 fL (80-100); Mean Platelet Volume 10.1 fL (9.1-12.4); NEUTROPHILS ABSOLUTE AUTO 6.39 K/mm3 (1.96-9.15); NEUTROPHILS PERCENT AUTO 81 % (41-73); Platelet Count 308 K/mm3 (150-400); RDW Coefficient Variation 14.4 % (11.7-14.2); RDW Standard Deviation 51.2 fL (35.1-46.3); Red Blood Cell Count 3.97 M/mm3 (3.80-5.20); White Blood Cell Count 7.87 K/mm3 (4.00-11.30)
[2019-10-17 11:59] LABS: Albumin, Blood 3.1 g/dL (3.4-5.0); Albumin/Globulin Ratio 0.6 (0.8-1.8); Bilirubin, Total 0.6 mg/dL (0.1-1.0); Bun/Creatinine Ratio 3.5 (12.0-20.0); Calcium, Blood 8.7 mg/dL (8.5-10.1); Creatinine, Blood 1.73 mg/dL (0.40-1.00); Globulin, Blood 5.3 g/dL (2.2-4.0); Potassium, Blood 3.6 mmol/L (3.5-5.5); Total Protein, Blood 8.4 g/dL (6.4-8.2)
== END 2019-10-17 12:53 | disposition home or self-care (01) ==
LOC: ER 11:08
PROVIDERS: Physician Assistant
DX: R42 Dizziness and giddiness (principal); I10 Essential (primary) hypertension; I48.91 Unspecified atrial fibrillation; E11.9 Type 2 diabetes mellitus without complications; J45.909 Unspecified asthma, uncomplicated; Z79.899 Other long term (current) drug therapy; Z79.4 Long term (current) use of insulin
CPT/HCPCS: 36415; 80053; 85025; 93005; 93010; 99285-25

== ENCOUNTER → 2019-10-29 | Outpatient (CLI) | payer OTHER ==
[2019-10-29 13:51] LABS: Source, Urine Clean Catch
[2019-10-29 14:14] LABS: Blood, Urine 2+ (Neg); Glucose Qualitative, Urine Neg (Neg); Ketones, Urine Neg (Neg); Leukocyte Esterase, Urine 3+ (Neg); Nitrite, Urine Pos (Neg); Protein, Urine 2+ (Neg); Specific Gravity, Urine 1.015 (1.003-1.022); Urobilinogen, Urine 1+ (Normal)
[2019-10-29 14:22] LABS: Bilirubin, Urine 1+ (Neg)
[2019-10-29 14:24] LABS: Appearance, Urine Hazy (Clear); Color, Urine Yellow (P-Yellow)
[2019-10-29 14:27] LABS: Bacteria Many /hpf; Squamous Epithelial Cells Few /hpf (Few); White Blood Cells, Urine TNTC /hpf (0-5)
== END | disposition home or self-care (01) ==
LOC: OLS 13:50 → LAB SHORT 13:50 → LAB FUT 10-28 12:05
PROVIDERS: Internal Medicine
DX: N39.0 Urinary tract infection, site not specified (principal)
CPT/HCPCS: 81001; 87077; 87086; 87186

== ENCOUNTER 2020-02-06 11:35 | Day surgery (SDC) | payer OTHER ==
[~2020-02-06] VITALS: Ht 157.5 cm; Wt 79.1 kg
[~2020-02-06 11:35] MED LIST changes: +ALBU90OI6 INH
[2020-02-06] MEDS ORDERED: ROPI.25 PO (12:45)
--- NOTE | 2020-02-06 16:00 | NUR ---
pt awake and eating snacks at this time.
--- NOTE | 2020-02-06 16:36 | NUR ---
SALINE LOCK REMOVED WITH CATHETER INTACT. DISCHARGE GONE OVER WITH PT. PT VERBALIZES UNDERSTANDING OF INSTRUCTIONS. PT TO PRIVATE VEHICLE PER W/C WITH ONE STAFF.
== END 2020-02-06 16:40 | disposition home or self-care (01) ==
LOC: MHTC 11:35
DX: Z45.2 Encounter for adjustment and management of vascular access device (principal); E11.22 Type 2 diabetes mellitus with diabetic chronic kidney disease; I12.0 Hypertensive chronic kidney disease with stage 5 chronic kidney disease or end stage renal disease; N18.6 End stage renal disease; E78.5 Hyperlipidemia, unspecified; J45.909 Unspecified asthma, uncomplicated; Z88.5 Allergy status to narcotic agent; Z99.2 Dependence on renal dialysis; Z79.4 Long term (current) use of insulin; Z79.899 Other long term (current) drug therapy
CPT/HCPCS: 36589; 36901; 36907; 76937; 99152; 99153; C1769; C1887; C1894; C2623; J1644; J2060; J2250; J3010; J7030; Q9967

== ENCOUNTER 2020-07-18 10:44 | Day surgery (SDC) | payer OTHER ==
[~2020-07-18] VITALS: Ht 157.5 cm; Wt 85.9 kg
[~2020-07-18 10:44] MED LIST changes: -METOPROLOL TART25 MG PO; -MIDO5 PO
[2020-08-15] MEDS ORDERED: METO25ER PO (16:19)
[2020-08-15] MEDS ORDERED: TRAZ100 PO (16:20)
[2020-09-23] MEDS ORDERED: WARF5 PO (07:51)
[2020-09-23] MEDS ORDERED: PRAV20 PO (07:51)
[2020-09-23] MEDS ORDERED: AURYXIA210 MG PO (07:52)
[2020-09-23] MEDS ORDERED: HUMALOG KW100 UNIT/1 SC (07:54)
== END 2020-07-18 14:44 | disposition home or self-care (01) ==
LOC: ORSCSDS 10:44
PROVIDERS: Internal Medicine Gastroenterology
PROC: 0DBL8ZX Excision of Transverse Colon, Via Natural or Artificial Opening Endoscopic, Diagnostic (ICD-10-PCS; principal; 2020-07-18 12:15)
PROC: 3E0H8KZ Introduction of Other Diagnostic Substance into Lower GI, Via Natural or Artificial Opening Endoscopic (ICD-10-PCS; principal; 2020-07-18 12:15)
PROC: 0DBN8ZX Excision of Sigmoid Colon, Via Natural or Artificial Opening Endoscopic, Diagnostic (ICD-10-PCS; principal; 2020-07-18 12:15)
DX: Z12.11 Encounter for screening for malignant neoplasm of colon (principal); D12.3 Benign neoplasm of transverse colon; D12.5 Benign neoplasm of sigmoid colon; K57.30 Diverticulosis of large intestine without perforation or abscess without bleeding; K64.8 Other hemorrhoids; Z86.010 Personal history of colon polyps; Z86.718 Personal history of other venous thrombosis and embolism; I10 Essential (primary) hypertension; E78.5 Hyperlipidemia, unspecified; F32.9 Major depressive disorder, single episode, unspecified; I48.20 Chronic atrial fibrillation, unspecified; E11.22 Type 2 diabetes mellitus with diabetic chronic kidney disease; N18.6 End stage renal disease; Z99.2 Dependence on renal dialysis; Z79.899 Other long term (current) drug therapy
CPT/HCPCS: 82947; 88305; J0330; J0461; J2405; J2704; J7120

== ENCOUNTER 2020-07-28 11:16 | Observation (INO) | payer OTHER ==
[~2020-07-28] VITALS: Ht 157.5 cm; Wt 81.7 kg
[2020-07-28] MEDS ORDERED: FURO80 PO (12:39)
[2020-07-28] MEDS ORDERED: ROPINIROLE HCL0.5 MG PO (12:40)
[2020-07-28] MEDS ORDERED: PRAVASTATIN SOD20 MG PO (12:40)
[2020-07-28] MEDS ORDERED: MIDO5 PO (13:27)
[2020-07-28] MEDS ORDERED: METOPROLOL TART25 MG PO (13:43)
[2020-07-28 14:01] LABS: BASOPHILS ABSOLUTE AUTO 0.05 K/mm3 (0.00-0.23); BASOPHILS PERCENT AUTO 1 % (0-2); EOSINOPHILS ABSOLUTE AUTO 0.12 K/mm3 (0.00-0.68); EOSINOPHILS PERCENT AUTO 2 % (0-6); Hematocrit 31.1 % (33.0-51.0); Hemoglobin 10.5 g/dL (11.5-16.0); IMMATURE GRAN ABSOLUTE AUTO 0.02 K/mm3 (0.00-0.10); IMMATURE GRAN PERCENT AUTO 0 % (0-1); LYMPHOCYTES ABSOLUTE AUTO 0.99 K/mm3 (0.84-5.20); LYMPHOCYTES PERCENT AUTO 14 % (21-46); MONOCYTES ABSOLUTE AUTO 0.55 K/mm3 (0.16-1.47); MONOCYTES PERCENT AUTO 8 % (4-13); Mean Corpuscular HGB 30.9 pg (26.0-34.0); Mean Corpuscular HGB Conc 33.8 g/dL (31.5-36.5); Mean Corpuscular Volume 92 fL (80-100); Mean Platelet Volume 10.8 fL (9.1-12.4); NEUTROPHILS ABSOLUTE AUTO 5.38 K/mm3 (1.96-9.15); NEUTROPHILS PERCENT AUTO 76 % (41-73); Platelet Count 227 K/mm3 (150-400); RDW Coefficient Variation 13.1 % (11.7-14.2); RDW Standard Deviation 43.2 fL (35.1-46.3); White Blood Cell Count 7.11 K/mm3 (4.00-11.30)
[2020-07-28 14:20] LABS: Albumin, Blood 3.1 g/dL (3.4-5.0); Albumin/Globulin Ratio 0.8 (0.8-1.8); Bilirubin, Total 0.3 mg/dL (0.1-1.0); Bun/Creatinine Ratio 15.9 (12.0-20.0); Calcium, Blood 8.8 mg/dL (8.5-10.1); Creatinine, Blood 4.15 mg/dL (0.40-1.00); Potassium, Blood 3.7 mmol/L (3.5-5.5); Total Protein, Blood 7.1 g/dL (6.4-8.2)
--- NOTE | 2020-07-28 16:50 | NUR ---
PATIENT TO MED FLOOR FOLLOWING THROMBECTOMY AT [facility] THIS AM. DIALYSIS ORDERED PER DR MORILLO THIS AFTERNOON AND TOMORROW. UPON ENTRY TO PT ROOM, PATIENT RESTING COMFORTABLY IN BED BUT ALERT. PATIENT INFORMED OF DIALYSIS ORDER AND SIGNED CONSENT FOR TREATMENT. UPON PALPATION OF AV GRAFT NO THRILL WAS ASCERTAINED. AUSCULTAION WITH STETHESCOPE REVEALED LACK OF BRUIT. EVIDENCE HIGHLY SUGGESTIVE THAT AV GRAFT IS AGAIN CLOTTED AND NOT USABLE FOR DIALYSIS AT THIS TIME. DR ARAIZA WAS CONTACTED VIA PHONE AND INFORMED OF THESE FINDINGS. HE WILL PLAN TO RE-ADDRESS DIALYSIS ACCESS FOR THIS PATIENT TOMORROW MORNING. DR MORILLO WAS INFORMED OF ALL THESE DEVELOPMENTS VIA PHONE AND IS COMFORTABLE WITH THIS PLAN OF ACTION.
[2020-07-28] MEDS ORDERED: GAVRETO100 MG PO (16:55)
--- NOTE | 2020-07-28 17:10 | NUR ---
PT ARRIVED AT 1540 TO HAVE DIALYSIS. PT IS AOX4 AND INDEPENDENT. FISTULA WAS NOT FUCTIONING AND NOW PT IS TO HAVE CVC DONE TOMORROW. PT IS RESTING IN ROOM CALL LIGHT WITHIN REACH. WILL CONTINUE TO MONITOR.
[2020-07-28] MEDS ORDERED: GABA100 PO (17:15)
--- NOTE | 2020-07-29 04:26 | NUR ---
SHIFT SUMMARY- PT. A&OX4, INDEPENDENT IN ROOM. ESRD ON HEMODIALYSIS. FISTULA TO L ARM OCCLUDED, PT. WAS UNABLE TO RECEIVE DIALYSIS YESTERDAY. 1X DOSE OF IV BUMEX GIVEN LAST NIGHT PER ORDER, TOLERATED WELL. PT. HAS BEEN VOIDING FREQUENTLY T/O THE NIGHT. NO COMPLAINTS OF PAIN OR DISCOMFORT DURING THE NIGHT OTHER THAN MILD SORENESS TO THE LT ARM. ANTICIPATING INTERVENTION BY DR. ARAIZA TODAY. PT. APPEARED TO HAVE RESTED QUIETLY T/O THE NIGHT, NO APPARENT DISTRESS NOTED. CALL LIGHT WITHIN REACH AND SIDE RAILS UPX2. WILL CONT TO MONITOR.
[2020-07-29 04:39] LABS: Hematocrit 29.3 % (33.0-51.0); Mean Corpuscular HGB 31.1 pg (26.0-34.0); Mean Corpuscular HGB Conc 34.1 g/dL (31.5-36.5); Mean Corpuscular Volume 91 fL (80-100); Mean Platelet Volume 10.9 fL (9.1-12.4); Platelet Count 212 K/mm3 (150-400); RDW Standard Deviation 42.5 fL (35.1-46.3); Red Blood Cell Count 3.22 M/mm3 (3.80-5.20); White Blood Cell Count 7.94 K/mm3 (4.00-11.30)
[2020-07-29 04:57] LABS: Anion Gap 8 mmol/L (6-16); Blood Urea Nitrogen 70 mg/dL (8-24); Bun/Creatinine Ratio 15.9 (12.0-20.0); CO2, Blood 24 mmol/L (21-32); Calcium, Blood 8.9 mg/dL (8.5-10.1); Chloride, Blood 105 mmol/L (98-108); Creatinine, Blood 4.39 mg/dL (0.40-1.00); Glomerular Filtration Rate 11 (60-); Glucose, Blood 173 mg/dL (70-99); Magnesium, Blood 2.2 mg/dL (1.6-2.4); Phosphorus, Blood 6.9 mg/dL (2.5-4.9); Potassium, Blood 4.1 mmol/L (3.5-5.5); Sodium, Blood 137 mmol/L (136-145)
--- NOTE | 2020-07-29 07:00 | NUR ---
PATIENT KEPT NPO FOR POSSIBLE CLEANING OF FISTULA. CALLED [facility]ENTER AND THEY WILL LET ME KNOW WHEN PATIENT WILL GO.
--- NOTE | 2020-07-29 08:52 | NUR ---
LEFT VOICE MESSAGE MRAGO MARES TO SEE WHEN PATIENT WILL GO FOR FISTULA CLEANING.
--- NOTE | 2020-07-29 14:33 | NUR ---
TO CATH FOR PERMACATH PLACEMENT. KVNG MENDOZA NOTIFIED PATIENT LEAVING NOW. WILL DO DIALYSIS IN ROOM.
--- NOTE | 2020-07-29 16:39 | NUR ---
DIALYSIS BEING DONE IN ROOM.
--- NOTE | 2020-07-29 17:17 | NUR ---
ALERT. ORIENTED. PLEASANT.PERMACATH PLACED RT C.W. DIALYSIS BEING DONE TODAY IN ROOM. HAS DENIED ANY DISCOMFORT. UNLABORED RESPIRATIONS. ON DIALYSIS FOR ABOUT 1 YEAR. 2 STITCHES IN LEFT ARM PLACED YESTERDAY AFTER INTERVENTIONALIST TRIED TO CLEAN OUT FISTULA. STITCHES DRY/INTACT WITH NO SIGNS OF INFECTION. NO CHANGES IN NEUROS. IV RT WRIST PATENT. WCTM
--- NOTE | 2020-07-30 04:29 | NUR ---
SUMMARY PT HAD NO NOTED NEURO CHANGES DURING SHIFT. NEURO'S CHECKED Q4HRS ORDERED. PT HAD NO ISSUES WITH BLEEDING NOTED AT PERMACATH SITE. PT HAD NO COMPLAINTS AND DENIES SOB OR CX PAIN. PT SLEPT SOME DURING SHIFT. PT CURRENTLY AWAKE WATCHING TV. CALL LIGHT IN REACH.
[2020-07-30 05:03] LABS: Hematocrit 34.9 % (33.0-51.0); Hemoglobin 11.7 g/dL (11.5-16.0)
[2020-07-30 05:30] LABS: Albumin, Blood 3.2 g/dL (3.4-5.0); Anion Gap 8 mmol/L (6-16); Blood Urea Nitrogen 33 mg/dL (8-24); CO2, Blood 28 mmol/L (21-32); Calcium, Blood 8.7 mg/dL (8.5-10.1); Chloride, Blood 104 mmol/L (98-108); Creatinine, Blood 3.01 mg/dL (0.40-1.00); Glomerular Filtration Rate 17 (60-); Glucose, Blood 208 mg/dL (70-99); Magnesium, Blood 2.3 mg/dL (1.6-2.4); Phosphorus, Blood 4.9 mg/dL (2.5-4.9); Potassium, Blood 3.7 mmol/L (3.5-5.5); Sodium, Blood 140 mmol/L (136-145)
--- NOTE | 2020-07-30 14:11 | NUR ---
REVIEW D'C WITH PATIENT. AWARE NO CHANGES IN MEDS. AWARE NEEDS TO CALL OFFICE TO SCHEDULE AN APPTOINTMENT FOR SURGICAL INTERVENTION OF FISTULA. HAS HAD PERMACATH IN THE PAST AND KNOWS HOW TO TAKE CARE OF IT. AWARE HAS M-W- DIALYSIS. STS WILL CALL [facility] FOR APPT. IV D'C WITH NO BRUISING OR SWELLING. VERBALIZES UNDERSTANDING. IN W/C W/GEOLOGICAL SCIENCE TEACHER TO POV.
[2020-08-15] MEDS ORDERED: METO25ER PO (16:19)
[2020-08-15] MEDS ORDERED: TRAZ100 PO (16:20)
[2020-09-23] MEDS ORDERED: WARF5 PO (07:51)
[2020-09-23] MEDS ORDERED: PRAV20 PO (07:51)
[2020-09-23] MEDS ORDERED: AURYXIA210 MG PO (07:52)
[2020-09-23] MEDS ORDERED: HUMALOG KW100 UNIT/1 SC (07:54)
== END 2020-07-30 14:40 | disposition home or self-care (01) ==
LOC: ER 11:16 → MEDS 11:17
PROVIDERS: Internal Medicine Nephrology; Nurse Practitioner Acute Care; Physician Assistant; ADMIT Hospitalist
DX: T82.590A Other mechanical complication of surgically created arteriovenous fistula, initial encounter (principal); E11.22 Type 2 diabetes mellitus with diabetic chronic kidney disease; I12.0 Hypertensive chronic kidney disease with stage 5 chronic kidney disease or end stage renal disease; N18.6 End stage renal disease; E87.70 Fluid overload, unspecified; D64.9 Anemia, unspecified; E88.09 Other disorders of plasma-protein metabolism, not elsewhere classified; E78.5 Hyperlipidemia, unspecified; I48.20 Chronic atrial fibrillation, unspecified; J45.20 Mild intermittent asthma, uncomplicated; G25.81 Restless legs syndrome; I95.9 Hypotension, unspecified; Y71.1 Therapeutic (nonsurgical) and rehabilitative cardiovascular devices associated with adverse incidents; Z99.2 Dependence on renal dialysis; Z86.718 Personal history of other venous thrombosis and embolism; Z98.84 Bariatric surgery status; Z88.5 Allergy status to narcotic agent; T82.858A Stenosis of other vascular prosthetic devices, implants and grafts, initial encounter; T82.868A Thrombosis due to vascular prosthetic devices, implants and grafts, initial encounter
CPT/HCPCS: 36415; 36558; 36905; 36908; 76937; 77001; 80053; 80069; 82947; 83735; 85014; 85018; 85025; 85027; 96374; 96375; 96376; 99152; 99153; 99284; A9270; C1725; C1750; C1769; C1876; C1887; C1894; C2623; G0257; G0378; J0171; J1644; J2250; J2405; J3010; J7030; J7040; Q9967

== ENCOUNTER 2020-08-18 07:00 | Day surgery (SDC) | payer OTHER ==
[~2020-08-18] VITALS: Ht 157.5 cm; Wt 81.0 kg
[~2020-08-18 07:00] MED LIST changes: +FURO80 PO; +GABA100 PO; +GAVRETO100 MG PO; +METOPROLOL TART25 MG PO; +MIDO5 PO; +PRAVASTATIN SOD20 MG PO; +ROPINIROLE HCL0.5 MG PO
--- NOTE | 2020-08-18 11:30 | NUR ---
L UPPER ARM PURSE STING SUTURES REMOVED. -BLEEDING OR SWELLING. L FEMORAL VEIN SHEATH REMOVED AND 10MIN PRESSURE HELD FOR 10MIN. -BLEEDING OR SWELLING. PT VERBALIZED UNDERSTANDING OF WRITTEN AND VERBAL D/C INST. PT TAKEN OUT OF THE HRT CENTER VIA W/C.
[2020-09-23] MEDS ORDERED: WARF5 PO (07:51)
[2020-09-23] MEDS ORDERED: PRAV20 PO (07:51)
[2020-09-23] MEDS ORDERED: AURYXIA210 MG PO (07:52)
[2020-09-23] MEDS ORDERED: HUMALOG KW100 UNIT/1 SC (07:54)
== END 2020-08-18 12:30 | disposition home or self-care (01) ==
LOC: MHTC 07:00
DX: T82.898A Other specified complication of vascular prosthetic devices, implants and grafts, initial encounter (principal); T82.858A Stenosis of other vascular prosthetic devices, implants and grafts, initial encounter; E11.22 Type 2 diabetes mellitus with diabetic chronic kidney disease; I12.0 Hypertensive chronic kidney disease with stage 5 chronic kidney disease or end stage renal disease; N18.6 End stage renal disease; I48.91 Unspecified atrial fibrillation; J45.909 Unspecified asthma, uncomplicated; F10.20 Alcohol dependence, uncomplicated; Y71.1 Therapeutic (nonsurgical) and rehabilitative cardiovascular devices associated with adverse incidents; Z86.718 Personal history of other venous thrombosis and embolism; Z99.2 Dependence on renal dialysis; Z98.84 Bariatric surgery status; Z88.5 Allergy status to narcotic agent; Z79.4 Long term (current) use of insulin
CPT/HCPCS: 36902; 36908; 76937; 82947; C1725; C1769; C1876; C1887; C1894; J1644; J2250; J2405; J2704; J3010; J7030; Q9967

== ENCOUNTER 2020-09-20 11:42 | Emergency (ER) | payer OTHER ==
[~2020-09-20] VITALS: Ht 157.5 cm; Wt 83.9 kg
[2020-09-20 16:00] LABS: Calcium, Ionized (POC) 0.87 mmol/L (1.10-1.46); Chloride (POC) 96 mmol/L (98-108); Creatinine (POC) 5.1 mg/dL (0.6-1.0); Glucose (ISTAT POC) 127 mg/dL (70-99); Hemoglobin (POC) 10.2 g/dL (12.0-16.0); Potassium (POC) 2.9 mmol/L (3.5-5.5); Sodium (POC) 133 mmol/L (135-148); Total CO2 (POC) 28 mmol/L (21-32)
[2020-09-20 16:54] LABS: SARS-Cov-2 (COVID-19) PCR, MMC NEGATIVE (NEGATIVE)
[2020-09-23] MEDS ORDERED: WARF5 PO (07:51)
[2020-09-23] MEDS ORDERED: PRAV20 PO (07:51)
[2020-09-23] MEDS ORDERED: AURYXIA210 MG PO (07:52)
[2020-09-23] MEDS ORDERED: HUMALOG KW100 UNIT/1 SC (07:54)
== END 2020-09-20 16:10 | disposition home or self-care (01) ==
LOC: ER 11:42
PROVIDERS: Emergency Medicine
DX: T82.868A Thrombosis due to vascular prosthetic devices, implants and grafts, initial encounter (principal); I10 Essential (primary) hypertension; I48.91 Unspecified atrial fibrillation; E11.9 Type 2 diabetes mellitus without complications; Z86.718 Personal history of other venous thrombosis and embolism; Z79.899 Other long term (current) drug therapy; Z20.822 Contact with and (suspected) exposure to COVID-19
CPT/HCPCS: 80047; 85014; 99283; U0004

== ENCOUNTER 2020-09-23 10:00 | Day surgery (SDC) | payer OTHER ==
[~2020-09-23] VITALS: Ht 157.5 cm; Wt 88.0 kg
[~2020-09-23 10:00] MED LIST changes: +AURYXIA210 MG PO; +HUMALOG KW100 UNIT/1 SC; +PRAV20 PO; +WARF5 PO
--- NOTE | 2020-09-23 13:52 | NUR ---
DISCHARGE PT REMAINED A&OX3 AND DENIED ANY PAIN DURING RECOVERY. LEFT UPPER CHEST SITE REMAINS CDI-NO HEMATOMA NOTED. PT ABLE TO DRESS SELF INDEPENDATLY. IV DC'D WITH CANULA IN TACT. DISCHARGE PAPERWORK GONE OVER WITH PT. PT VERBALLY STATED THE UNDERSTANDING OF THE DISCHARGE EDUCATION AND DENIED ANY QUESTIONS AT THIS TIME. PT WHEELED OUT BY CLARISA Us RN.
== END 2020-09-23 13:50 | disposition home or self-care (01) ==
LOC: MHTC 10:00 → EDSTATUS 10:09 → MHTC 10:10
DX: E10.22 Type 1 diabetes mellitus with diabetic chronic kidney disease (principal); I12.0 Hypertensive chronic kidney disease with stage 5 chronic kidney disease or end stage renal disease; N18.6 End stage renal disease; I48.20 Chronic atrial fibrillation, unspecified; J45.909 Unspecified asthma, uncomplicated; E78.5 Hyperlipidemia, unspecified; E66.9 Obesity, unspecified; Z99.2 Dependence on renal dialysis; Z98.84 Bariatric surgery status; Z95.820 Peripheral vascular angioplasty status with implants and grafts; Z79.4 Long term (current) use of insulin; Z79.01 Long term (current) use of anticoagulants; Z68.34 Body mass index [BMI] 34.0-34.9, adult
CPT/HCPCS: 36581; 99152; C1750; C1769; J1644; J2250; J3010; J7030; J7050

== ENCOUNTER 2020-11-07 10:42 | Day surgery (SDC) | payer OTHER ==
[~2020-11-07] VITALS: Ht 157.5 cm; Wt 90.7 kg
--- NOTE | 2020-11-07 15:28 | NUR ---
PURSE STRING SUTURES OUT, NO BLEEDING NOTED AND CLOTH DOTS PLACED TO BOTH AREAS ON R ARM. SALINE LOCK REMOVED WITH CATHETER INTACT AND PT DRESSED PER SELF. UP TO BATHROOM. DISCHARGE INSTRUCTIONS REVIEWED WITH PT, VERBALIZES UNDERSTANDING. PT TO PRIVATE VEHICLE PER W/C WITH ONE STAFF.
== END 2020-11-07 15:55 | disposition home or self-care (01) ==
LOC: MHTC 10:42
DX: T82.9XXA Unspecified complication of cardiac and vascular prosthetic device, implant and graft, initial encounter (principal); I12.0 Hypertensive chronic kidney disease with stage 5 chronic kidney disease or end stage renal disease; N18.6 End stage renal disease; I48.91 Unspecified atrial fibrillation; J44.9 Chronic obstructive pulmonary disease, unspecified; E78.5 Hyperlipidemia, unspecified
CPT/HCPCS: 36581; 36905; 75827; 76937; 99152; 99153; C1725; C1750; C1769; C1887; C1894; J1644; J2250; J3010; J7040; Q9967

== ENCOUNTER 2020-11-12 11:17 | Day surgery (SDC) | payer OTHER ==
[~2020-11-12] VITALS: Ht 157.5 cm; Wt 90.7 kg
[2020-11-12] MEDS ORDERED: METO25 PO (12:06)
--- NOTE | 2020-11-12 12:09 | NUR ---
CHEM BG PERFORMED, RESULT OF 178
[2020-11-12 12:43] LABS: International Normalized Ratio 2.7; Prothrombin Time Results 27.6 Sec (9.7-11.5)
--- NOTE | 2020-11-12 15:20 | NUR ---
PT TO RECOVERY ROOM POST PROCEDURE. PT DROWSY, BUT EASILY ROUSABLE; ANSWERING QUESTIONS APPROPRIATELY. PT DENIES PAIN POST PROCEDURE. MONITOR AFIB 70'S, B/P 121/87, AFEBRILE, SPO2 94% RA. R ARM FISTULA NO SWELLING/HEMATOMA, POSITIVE THRILL; CLOTH DOT DRSG X 2 INTACT.
--- NOTE | 2020-11-12 15:25 | NUR ---
PT DESATING TO LOW 80'S ON RA, ASYMPTOMATIC; PLACED ON 2L NC SPO2 95-96%.
--- NOTE | 2020-11-12 17:10 | NUR ---
PT AMB TO BATHRROM, GAIT STEADY; SITE UNCHANGED. PT DRESSED SELF WITHOUT ASSISTANCE; IV REMOVED-CANNULA INTACT.
--- NOTE | 2020-11-12 17:17 | NUR ---
PT RECEIVED DISCHARGE INSTRUCTIONS, MED LIST AND AFTER CARE INSTRUCTIONS; VERBALIZED GOOD UNDERSTANDING. PT LEFT FACILITY VIA W/C, CONDITION STABLE.
== END 2020-11-12 17:17 | disposition home or self-care (01) ==
LOC: MHTC 11:17
PROVIDERS: Radiology Diagnostic Radiology
DX: T82.9XXA Unspecified complication of cardiac and vascular prosthetic device, implant and graft, initial encounter (principal); I12.0 Hypertensive chronic kidney disease with stage 5 chronic kidney disease or end stage renal disease; N18.6 End stage renal disease; E11.22 Type 2 diabetes mellitus with diabetic chronic kidney disease; I48.91 Unspecified atrial fibrillation; J45.909 Unspecified asthma, uncomplicated; E78.5 Hyperlipidemia, unspecified; Z88.5 Allergy status to narcotic agent; Z79.01 Long term (current) use of anticoagulants; Z79.899 Other long term (current) drug therapy
CPT/HCPCS: 76937; 82947; 85610; 99152; 99153; C1725; C1769; C1876; C1887; C1894; J2250; J3010; J7030; Q9967

== ENCOUNTER 2020-12-10 09:45 | Emergency (ER) | payer OTHER ==
[~2020-12-10] VITALS: Ht 157.5 cm; Wt 83.9 kg
[~2020-12-10 09:45] MED LIST changes: +METO25 PO
[2020-12-10 10:40] LABS: BASOPHILS ABSOLUTE AUTO 0.06 K/mm3 (0.00-0.23); BASOPHILS PERCENT AUTO 1 % (0-2); EOSINOPHILS ABSOLUTE AUTO 0.14 K/mm3 (0.00-0.68); EOSINOPHILS PERCENT AUTO 1 % (0-6); Hematocrit 33.5 % (33.0-51.0); Hemoglobin 11.2 g/dL (11.5-16.0); IMMATURE GRAN ABSOLUTE AUTO 0.06 K/mm3 (0.00-0.10); IMMATURE GRAN PERCENT AUTO 1 % (0-1); LYMPHOCYTES ABSOLUTE AUTO 1.07 K/mm3 (0.84-5.20); LYMPHOCYTES PERCENT AUTO 10 % (21-46); MONOCYTES PERCENT AUTO 6 % (4-13); Mean Corpuscular HGB 31.3 pg (26.0-34.0); Mean Corpuscular HGB Conc 33.4 g/dL (31.5-36.5); Mean Corpuscular Volume 94 fL (80-100); Mean Platelet Volume 10.8 fL (9.1-12.4); NEUTROPHILS ABSOLUTE AUTO 8.62 K/mm3 (1.96-9.15); NEUTROPHILS PERCENT AUTO 82 % (41-73); Platelet Count 288 K/mm3 (150-400); RDW Coefficient Variation 13.9 % (11.7-14.2); RDW Standard Deviation 46.9 fL (35.1-46.3); Red Blood Cell Count 3.58 M/mm3 (3.80-5.20); White Blood Cell Count 10.55 K/mm3 (4.00-11.30)
[2020-12-10 10:54] LABS: Alanine Aminotransfer (ALT/SGP 27 U/L (12-78); Albumin, Blood 3.7 g/dL (3.4-5.0); Albumin/Globulin Ratio 0.9 (0.8-1.8); Alk Phos 127 U/L (50-136); Anion Gap 6 mmol/L (6-16); Aspartate Aminotrans (AST/SGOT 22 U/L (12-37); Bilirubin, Total 0.4 mg/dL (0.1-1.0); Blood Urea Nitrogen 29 mg/dL (8-24); CO2, Blood 32 mmol/L (21-32); Chloride, Blood 98 mmol/L (98-108); Creatinine, Blood 2.42 mg/dL (0.40-1.00); Globulin, Blood 4.3 g/dL (2.2-4.0); Glomerular Filtration Rate 20 (60-); Glucose, Blood 159 mg/dL (70-99); Potassium, Blood 3.5 mmol/L (3.5-5.5); Sodium, Blood 136 mmol/L (136-145); Troponin I <0.015 ng/mL (0.000-0.040)
[2021-01-02] MEDS ORDERED: AURYXIA210 MG PO (14:33)
[2021-01-02] MEDS ORDERED: METO25ER PO (14:35)
== END 2020-12-10 12:15 | disposition home or self-care (01) ==
LOC: ER 09:45
PROVIDERS: Physician Assistant
DX: R07.9 Chest pain, unspecified (principal); I48.91 Unspecified atrial fibrillation; I10 Essential (primary) hypertension; Z91.09 Other allergy status, other than to drugs and biological substances; Z79.01 Long term (current) use of anticoagulants; Z79.899 Other long term (current) drug therapy
CPT/HCPCS: 36415; 71046; 80053; 84484; 85025; 93005; 93010; 99285-25

== ENCOUNTER 2021-01-05 10:43 | Day surgery (SDC) | payer OTHER ==
[~2021-01-05] VITALS: Ht 160 cm; Wt 87.0 kg
--- NOTE | 2021-01-05 13:09 | NUR ---
PT TO RECOVERY ROOM IN , STANDS ON OWN AND CHANGES INTO GOWN ON OWN, A&OX3, PERRLA, BREATHING UNLABORED WHEN NOT EXERTING, SINUS, VSS STABLE, ADITI Dee RN ATTEMPTING IV IN L ARM, BOTH ARMS BILAT HAVE OLD FISTULAS, PLAN TO DAY IS TO CHANGE THE PERMACATH FROM L SIDE TO R SIDE FOR UPCOMING PROCEDURE IN OTILIO MEDAbeba REVIEWED W PT.
== END 2021-01-05 15:00 | disposition home or self-care (01) ==
LOC: MHTC 10:43 → ORSCMMR 10:44 → MHTC 10:46
DX: I12.0 Hypertensive chronic kidney disease with stage 5 chronic kidney disease or end stage renal disease (principal); E11.22 Type 2 diabetes mellitus with diabetic chronic kidney disease; N18.6 End stage renal disease; I48.20 Chronic atrial fibrillation, unspecified; J45.909 Unspecified asthma, uncomplicated; E78.5 Hyperlipidemia, unspecified; Z86.718 Personal history of other venous thrombosis and embolism; Z98.84 Bariatric surgery status; Z79.4 Long term (current) use of insulin; Z79.01 Long term (current) use of anticoagulants
CPT/HCPCS: 36558; 36589; 76937; 77001; 99152; 99153; C1750; C1769; C1894; J1644; J2250; J3010; J7040

== ENCOUNTER 2021-04-08 11:15 | Day surgery (SDC) | payer OTHER ==
[~2021-04-08] VITALS: Ht 160 cm; Wt 91.2 kg
== END 2021-04-08 13:27 | disposition home or self-care (01) ==
LOC: ORSCSDS 11:15
PROVIDERS: Internal Medicine Gastroenterology
PROC: 0DBL8ZX Excision of Transverse Colon, Via Natural or Artificial Opening Endoscopic, Diagnostic (ICD-10-PCS; principal; 2021-04-08 12:45)
DX: Z12.11 Encounter for screening for malignant neoplasm of colon (principal); Z86.010 Personal history of colon polyps; D12.3 Benign neoplasm of transverse colon; K57.30 Diverticulosis of large intestine without perforation or abscess without bleeding; K64.8 Other hemorrhoids; I48.91 Unspecified atrial fibrillation; Z79.01 Long term (current) use of anticoagulants; E11.9 Type 2 diabetes mellitus without complications; N18.6 End stage renal disease; E78.5 Hyperlipidemia, unspecified; Z79.899 Other long term (current) drug therapy; Z79.4 Long term (current) use of insulin; Z79.82 Long term (current) use of aspirin
CPT/HCPCS: 82947; 84132; 88305; A9270; J0330; J0461; J2310; J2405; J2704; J7120

== ENCOUNTER 2021-06-10 13:24 | Emergency (ER) | payer OTHER ==
[~2021-06-10] VITALS: Ht 157.5 cm; Wt 88.5 kg
[2021-06-10 14:16] LABS: International Normalized Ratio 1.3; Prothrombin Time Results 13.4 Sec (9.7-11.5)
== END 2021-06-10 14:46 | disposition home or self-care (01) ==
LOC: ER 13:24
PROVIDERS: Physician Assistant
DX: I82.513 Chronic embolism and thrombosis of femoral vein, bilateral (principal); Z79.899 Other long term (current) drug therapy; Z79.01 Long term (current) use of anticoagulants; Z79.4 Long term (current) use of insulin; N18.6 End stage renal disease; I12.0 Hypertensive chronic kidney disease with stage 5 chronic kidney disease or end stage renal disease; J45.909 Unspecified asthma, uncomplicated
CPT/HCPCS: 36415; 85610; 93970

== ENCOUNTER 2021-07-07 11:12 | Emergency (ER) | payer OTHER ==
[2021-07-07] MEDS ORDERED: Norco 5-325 Ta1 EACH PO (17:07)
[2021-07-07] MEDS ORDERED: CEPH500 PO (17:07)
== END 2021-07-07 11:41 | disposition left against medical advice (07) ==
LOC: ER 11:12
DX: Z53.21 Procedure and treatment not carried out due to patient leaving prior to being seen by health care provider (principal)

== ENCOUNTER 2021-07-07 14:49 | Emergency (ER) | payer OTHER ==
[~2021-07-07] VITALS: Ht 157.5 cm; Wt 98.6 kg
[2021-07-07] MEDS ORDERED: CEPH500 PO (17:07)
[2021-07-07] MEDS ORDERED: Norco 5-325 Ta1 EACH PO (17:07)
== END 2021-07-07 17:25 | disposition home or self-care (01) ==
LOC: ER 14:49
DX: L03.317 Cellulitis of buttock (principal); R79.1 Abnormal coagulation profile; E11.22 Type 2 diabetes mellitus with diabetic chronic kidney disease; I12.0 Hypertensive chronic kidney disease with stage 5 chronic kidney disease or end stage renal disease; N18.6 End stage renal disease; Z79.899 Other long term (current) drug therapy
CPT/HCPCS: 99283-25; A9270; J3430

== ENCOUNTER 2021-07-22 17:50 | Inpatient (IN) | payer OTHER ==
[~2021-07-22] VITALS: Ht 157.5 cm; Wt 86.9 kg
[~2021-07-22 17:50] MED LIST changes: +Coumadin7.5 MG PO; -WARF5 PO
[2021-07-22 18:40] LABS: BASOPHILS ABSOLUTE AUTO 0.08 K/mm3 (0.00-0.23); BASOPHILS PERCENT AUTO 1 % (0-2); EOSINOPHILS ABSOLUTE AUTO 0.09 K/mm3 (0.00-0.68); EOSINOPHILS PERCENT AUTO 1 % (0-6); Hematocrit 33.7 % (33.0-51.0); Hemoglobin 10.6 g/dL (11.5-16.0); IMMATURE GRAN ABSOLUTE AUTO 0.06 K/mm3 (0.00-0.10); IMMATURE GRAN PERCENT AUTO 1 % (0-1); LYMPHOCYTES ABSOLUTE AUTO 0.52 K/mm3 (0.84-5.20); LYMPHOCYTES PERCENT AUTO 6 % (21-46); MONOCYTES PERCENT AUTO 9 % (4-13); Mean Corpuscular HGB 28.5 pg (26.0-34.0); Mean Corpuscular HGB Conc 31.5 g/dL (31.5-36.5); Mean Corpuscular Volume 91 fL (80-100); Mean Platelet Volume 9.4 fL (9.1-12.4); NEUTROPHILS PERCENT AUTO 83 % (41-73); Platelet Count 345 K/mm3 (150-400); RDW Coefficient Variation 15.9 % (11.7-14.2); RDW Standard Deviation 51.8 fL (35.1-46.3); Red Blood Cell Count 3.72 M/mm3 (3.80-5.20); White Blood Cell Count 8.85 K/mm3 (4.00-11.30)
[2021-07-22 19:20] LABS: Albumin, Blood 3.1 g/dL (3.4-5.0); Albumin/Globulin Ratio 0.6 (0.8-1.8); Bilirubin, Total 0.6 mg/dL (0.1-1.0); Bun/Creatinine Ratio 11.6 (12.0-20.0); Calcium, Blood 10.2 mg/dL (8.5-10.1); Creatinine, Blood 3.78 mg/dL (0.40-1.00); Globulin, Blood 4.8 g/dL (2.2-4.0); Potassium, Blood 4.3 mmol/L (3.5-5.5); Total Protein, Blood 7.9 g/dL (6.4-8.2)
[2021-07-23] MEDS ORDERED: INSULIN GL100 UNIT/2 SC (03:30)
[2021-07-23] MEDS ORDERED: FLUTICASONE-SA1 EAC9 INH (03:31)
[2021-07-23] MEDS ORDERED: SULFAMETHOXAZO1 EAC1 PO (03:32)
[2021-07-23] MEDS ORDERED: FURO80 PO (03:32)
[2021-07-23] MEDS ORDERED: CEPH500 PO (03:34)
[2021-07-23 04:36] LABS: BASOPHILS ABSOLUTE AUTO 0.07 K/mm3 (0.00-0.23); BASOPHILS PERCENT AUTO 1 % (0-2); EOSINOPHILS ABSOLUTE AUTO 0.22 K/mm3 (0.00-0.68); EOSINOPHILS PERCENT AUTO 3 % (0-6); Hematocrit 27.6 % (33.0-51.0); Hemoglobin 8.5 g/dL (11.5-16.0); IMMATURE GRAN ABSOLUTE AUTO 0.03 K/mm3 (0.00-0.10); IMMATURE GRAN PERCENT AUTO 0 % (0-1); LYMPHOCYTES ABSOLUTE AUTO 0.66 K/mm3 (0.84-5.20); LYMPHOCYTES PERCENT AUTO 8 % (21-46); MONOCYTES ABSOLUTE AUTO 1.19 K/mm3 (0.16-1.47); MONOCYTES PERCENT AUTO 14 % (4-13); Mean Corpuscular HGB 29.2 pg (26.0-34.0); Mean Corpuscular HGB Conc 30.8 g/dL (31.5-36.5); Mean Corpuscular Volume 95 fL (80-100); Mean Platelet Volume 9.3 fL (9.1-12.4); NEUTROPHILS ABSOLUTE AUTO 6.44 K/mm3 (1.96-9.15); NEUTROPHILS PERCENT AUTO 75 % (41-73); NRBC ABSOLUTE 0.02 K/mm3 (0.00-0.02); NRBC Auto 0.2 /100 WBC (0.0-0.2); Platelet Count 309 K/mm3 (150-400); RDW Standard Deviation 54.5 fL (35.1-46.3); Red Blood Cell Count 2.91 M/mm3 (3.80-5.20); White Blood Cell Count 8.61 K/mm3 (4.00-11.30)
[2021-07-23 04:38] LABS: International Normalized Ratio 1.39; Prothrombin Time Results 14.3 Sec (9.7-11.5)
[2021-07-23 04:44] LABS: Albumin, Blood 2.4 g/dL (3.4-5.0); Albumin/Globulin Ratio 0.6 (0.8-1.8); Bilirubin, Total 0.3 mg/dL (0.1-1.0); Bun/Creatinine Ratio 12.2 (12.0-20.0); Calcium, Blood 9.4 mg/dL (8.5-10.1); Creatinine, Blood 4.02 mg/dL (0.40-1.00); Total Protein, Blood 6.4 g/dL (6.4-8.2)
--- NOTE | 2021-07-23 07:34 | NUR ---
PATIENT WAS BROUGHT FROM THE ED, SHE IS AND ALERT AND ORIENTED. SHE IS IN PAIN, AND SHE GOT HER PAIN MED NEEDED. HER V/S WERE STABLE. ASSESSMENT DONE AND RECORDED. SKIN ASSESSMENT DONE AND PHOTOS TAKEN. WILL CONTINUE TO MONITOR HER.
[2021-07-23] MEDS ORDERED: MIDO5 PO (09:48)
[2021-07-23] MEDS ORDERED: ALBU90OI INH (09:52)
[2021-07-23] MEDS ORDERED: METO25ER PO (10:24)
--- NOTE | 2021-07-23 18:50 | NUR ---
PATIENT HAD DIALYSIS TODAY. SHE STATES SHE THINKS THEY PULLED 2 LITERS OF FLUID. PATIENT HAS OPEN AREAS ON BUTTOCKS, AND CIRCULAR SORES DOWN LOWER EXTREMITIES. SHE HAS A FEW CIRCULAR SORES AROUND HER EYES, AND FORHEAD AREA. PATIENT THINKS THIS IS FROM AN ALLERGIC REACTION, BUT ALSO HAS PSORIASIS. PATIENT HAS CRACKLES IN LEFT LOBES AND RIGHT SIDE IS DIMINISHED. EDEMA +2 LOWER EXTREMITIES. SHE SAYS THAT WITH ACTIVITY SHE DOES EXPERIENCE SOB. PAIN HAS BEEN INTERMITTENT ALL DAY. NARCO TAKES 8/10 PAIN DOWN TO ABOUT A 5/10. PATIENT STATES SHE TRIES TO STAY POSITIVE THROUGH ILLNESS.
--- NOTE | 2021-07-24 01:50 | NUR ---
BLADDER TRIMMER SUMMARY PATIENT HAD A FAIR SHIFT. HER VITALS WERE STABLE. SHE STILL CONCERNED ABOUT HER PAIN. SHE GOT HER PAIN MED NEEDED. NO OTHER COMPLAINTS LODGED. WILL CONTINUE TO MONITOR HER.
[2021-07-24 04:45] LABS: Hematocrit 30.2 % (33.0-51.0); Hemoglobin 9.2 g/dL (11.5-16.0); Mean Corpuscular HGB 28.5 pg (26.0-34.0); Mean Corpuscular HGB Conc 30.5 g/dL (31.5-36.5); Mean Corpuscular Volume 94 fL (80-100); Mean Platelet Volume 9.2 fL (9.1-12.4); Platelet Count 322 K/mm3 (150-400); RDW Coefficient Variation 15.9 % (11.7-14.2); RDW Standard Deviation 53.9 fL (35.1-46.3); Red Blood Cell Count 3.23 M/mm3 (3.80-5.20)
[2021-07-24 05:01] LABS: International Normalized Ratio 1.38; Prothrombin Time Results 14.2 Sec (9.7-11.5)
[2021-07-24 05:02] LABS: Albumin, Blood 2.5 g/dL (3.4-5.0); Anion Gap 7 mmol/L (6-16); Blood Urea Nitrogen 33 mg/dL (8-24); CO2, Blood 31 mmol/L (21-32); Calcium, Blood 9.5 mg/dL (8.5-10.1); Chloride, Blood 96 mmol/L (98-108); Creatinine, Blood 3.29 mg/dL (0.40-1.00); Glomerular Filtration Rate 14 (60-); Glucose, Blood 88 mg/dL (70-99); Magnesium, Blood 2.3 mg/dL (1.6-2.4); Phosphorus, Blood 5.4 mg/dL (2.5-4.9); Potassium, Blood 4.2 mmol/L (3.5-5.5); Sodium, Blood 134 mmol/L (136-145)
--- NOTE | 2021-07-24 18:47 | NUR ---
SHIFT SUMMARY; PATIENT REMAINS IN BED FOR MOST OF DAY. IS INDEPENDANT TO THE BATHROOM HOWEVER SAYS IT IS UNCOMFORTABLE FOR HER TO SIT IN A CHAIR FOR VERY LONG AND IS MORE COMFORTABLE LAYING IN BED. SHE DOES NOT REQUIRE COVERAGE FOR HER BLOOD SUGARS THEY ARE IN THE 70'S TO 80'S ALL DAY. VICTOR HUGO ASKS FOR PAIN MEDICATION X 2 DURING THE DAY FOR PAIN ON HER HIPS AND BOTTOM. HER VITAL SIGNS ARE WNL. SHE USES CALL LIGHT APPROPRIATELY AND IS ABLE TO MAKE HER NEEDS KNOWN. PATIENT HAS PLEASANT AFFECT AND IS COOPERATIVE WITH CARE. PER DR. MORILLO PLAN IS FOR VICTOR HUGO TO RECEIVE DIALYSIS IN THE AM AND BE DISCHARGED SHORTLY AFTER IS OK WITH HOSPITALIST. WILL REMAIN AVAILABLE FOR THIS VICTOR HUGO FOR ANY WANTS OR NEEDS THAT COME UP BEFORE REPORT AND HAND OFF AT SHIFT CHANGE.
--- NOTE | 2021-07-25 02:19 | NUR ---
NUCLEAR MEDICINE SUPERVISOR SUMMARY PATIENT HAD A FAIR SHIFT. SHE IS ALERT AND ORIENTED, AND PLEASANT. SHE DID NOT LODGE ANY FRESH COM[LAINTS. SHE HAD HER PAIN MED NEEDED. HER V /S WERE STABLE. WILL CONTINUE TO MONITOR HER.
[2021-07-25 05:51] LABS: Hematocrit 28.6 % (33.0-51.0); Hemoglobin 8.8 g/dL (11.5-16.0)
[2021-07-25 06:01] LABS: International Normalized Ratio 2.2; Prothrombin Time Results 21.9 Sec (9.7-11.5)
[2021-07-25 06:18] LABS: Albumin, Blood 2.4 g/dL (3.4-5.0); Anion Gap 12 mmol/L (6-16); Blood Urea Nitrogen 40 mg/dL (8-24); Bun/Creatinine Ratio 9.7 (12.0-20.0); CO2, Blood 28 mmol/L (21-32); Calcium, Blood 9.6 mg/dL (8.5-10.1); Chloride, Blood 92 mmol/L (98-108); Creatinine, Blood 4.11 mg/dL (0.40-1.00); Glomerular Filtration Rate 11 (60-); Glucose, Blood 101 mg/dL (70-99); Magnesium, Blood 2.5 mg/dL (1.6-2.4); Phosphorus, Blood 6.4 mg/dL (2.5-4.9); Potassium, Blood 4.2 mmol/L (3.5-5.5); Sodium, Blood 132 mmol/L (136-145)
[2021-07-25] MEDS ORDERED: VISBIOME 112.51 EACH PO (11:33)
[2021-07-25] MEDS ORDERED: AMOCLA500 PO (11:34)
== END 2021-07-25 13:36 | disposition home or self-care (01) | DRG 602 ==
LOC: ER 17:50 → MEDS 07-23 01:05
PROVIDERS: Family Medicine; Internal Medicine; Internal Medicine Nephrology; Pharmacist; Physician Assistant; ADMIT Internal Medicine
PROC: 5A1D70Z Performance of Urinary Filtration, Intermittent, Less than 6 Hours Per Day (ICD-10-PCS; principal; 2021-07-23)
DX: L03.115 Cellulitis of right lower limb (principal); N18.6 End stage renal disease; I12.0 Hypertensive chronic kidney disease with stage 5 chronic kidney disease or end stage renal disease; N25.81 Secondary hyperparathyroidism of renal origin; E87.1 Hypo-osmolality and hyponatremia; E83.41 Hypermagnesemia; L03.116 Cellulitis of left lower limb; E11.22 Type 2 diabetes mellitus with diabetic chronic kidney disease; I48.0 Paroxysmal atrial fibrillation; E11.42 Type 2 diabetes mellitus with diabetic polyneuropathy; G25.81 Restless legs syndrome; F11.90 Opioid use, unspecified, uncomplicated; Z68.35 Body mass index [BMI] 35.0-35.9, adult; E66.9 Obesity, unspecified; D63.1 Anemia in chronic kidney disease; J45.20 Mild intermittent asthma, uncomplicated; Z99.2 Dependence on renal dialysis; Z79.4 Long term (current) use of insulin; Z79.01 Long term (current) use of anticoagulants; Z79.899 Other long term (current) drug therapy; Z90.710 Acquired absence of both cervix and uterus; Z90.89 Acquired absence of other organs; Z86.718 Personal history of other venous thrombosis and embolism; Z98.84 Bariatric surgery status; Z98.890 Other specified postprocedural states
CPT/HCPCS: 36415; 72192; 80053; 80069; 82947; 83605; 83735; 85014; 85018; 85025; 85027; 85610; 87040; 94640; 94760; 96374; 96375; 96376; 99284-25; A9270; J0881; J1170; J1815; J2405; J2543; J7050

== ENCOUNTER 2021-08-26 05:50 | Inpatient (IN) | payer OTHER ==
[~2021-08-26] VITALS: Ht 157.5 cm; Wt 93.5 kg
[~2021-08-26 05:50] MED LIST changes: +AMOCLA500 PO; +FLUTICASONE-SA1 EAC9 INH; +INSULIN GL100 UNIT/2 SC; +SULFAMETHOXAZO1 EAC1 PO; +VISBIOME 112.51 EACH PO
[2021-08-26 06:20] LABS: Calcium, Ionized (POC) 0.88 mmol/L (1.10-1.46); Chloride (POC) 95 mmol/L (98-108); Creatinine (POC) 4.4 mg/dL (0.6-1.0); Glucose (ISTAT POC) 50 mg/dL (70-99); Hemoglobin (POC) 10.5 g/dL (12.0-16.0); Potassium (POC) 4.6 mmol/L (3.5-5.5); Sodium (POC) 132 mmol/L (135-148); Total CO2 (POC) 26 mmol/L (21-32)
[2021-08-26 06:21] LABS: Hematocrit 31.7 % (33.0-51.0); Hemoglobin 10.3 g/dL (11.5-16.0); Mean Corpuscular HGB 28.8 pg (26.0-34.0); Mean Corpuscular HGB Conc 32.5 g/dL (31.5-36.5); Mean Corpuscular Volume 89 fL (80-100); Mean Platelet Volume 9.5 fL (9.1-12.4); Platelet Count 435 K/mm3 (150-400); RDW Coefficient Variation 21.1 % (11.7-14.2); RDW Standard Deviation 67.5 fL (35.1-46.3); Red Blood Cell Count 3.58 M/mm3 (3.80-5.20); White Blood Cell Count 30.62 K/mm3 (4.00-11.30)
[2021-08-26 06:40] LABS: Albumin/Globulin Ratio 0.5 (0.8-1.8); Bilirubin, Total 5.1 mg/dL (0.1-1.0); Bun/Creatinine Ratio 14.2 (12.0-20.0); Calcium, Blood 7.9 mg/dL (8.5-10.1); Creatinine, Blood 3.8 mg/dL (0.40-1.00); Globulin, Blood 3.7 g/dL (2.2-4.0); Magnesium, Blood 2.5 mg/dL (1.6-2.4); Potassium, Blood 4.1 mmol/L (3.5-5.5); Total Protein, Blood 5.7 g/dL (6.4-8.2)
[2021-08-26 06:56] LABS: BAND PERCENT MAN 32 % (0-8); BASOPHILS PERCENT MAN 0 % (0-2); EOSINOPHILS PERCENT MAN 0 % (0-6); LYMPHOCYTES ABSOLUTE MAN 0.61 K/mm3 (0.84-5.20); LYMPHOCYTES PERCENT MAN 2 % (21-46); METAMYELOCYTE PERCENT MAN 1 % (0-0); MONOCYTES ABSOLUTE MAN 0.61 K/mm3 (0.16-1.47); MONOCYTES PERCENT MAN 2 % (4-13); NEUTROPHILS ABSOLUTE MAN 29.08 K/mm3 (1.96-9.15); SEG NEUTROPHILS PERCENT MAN 63 % (41-73); TOTAL CELLS COUNTED 100
[2021-08-26 08:14] LABS: Influenza A, PCR NEGATIVE (NEGATIVE); Influenza B, PCR NEGATIVE (NEGATIVE); Resp Syncytial Virus, PCR NEGATIVE (NEGATIVE); SARS-Cov-2 (COVID-19) PCR, MMC NEGATIVE (NEGATIVE)
[2021-08-26 08:27] LABS: International Normalized Ratio 1.64; Prothrombin Time Results 16.7 Sec (9.7-11.5)
[2021-08-26 11:14] LABS: Hematocrit 37.9 % (33.0-51.0); Hemoglobin 12.6 g/dL (11.5-16.0)
--- NOTE | 2021-08-26 14:34 | NUR ---
08/26/21 1434 CLEMENT FONTAINE History, Chart, Medications and Allergies reviewed before start of procedure. 3-LEAD EKG REVIEWED WITH PHYSICIAN PRIOR TO START OF PROCEDURE. O2 VIA POM INTACT THROUGHOUT SEDATION/PROCEDURE. MONITOR INTACT WITH CONTINUOUS PULSE OXIMETRY AND INTERMITTENT BP. GENERAL WITH DR. OAKES.
--- NOTE | 2021-08-26 14:38 | NUR ---
PT TO ICU 15 FROM ED. PT MOVED TO ICU BED VIA SLIDER SHEET. PT VERY PAINFUL WITH MOVEMENT D/T BILATERAL HIP/BUTTOCK CELLULITIS AND ABDOMINAL PAIN. PT ALERT TO SELF, FOLLOWS COMMANDS, OCCASIONALLY CONFUSED. BLOOD SUGAR 41 ON ARRIVAL, TREATED PER PROTOCOL. PT ARRIVES ON 5LNC, SATS 99%, TURNED DOWN TO 1L NC, LUNG SOUNDS CLEAR T/O. PT OCCASIONALLY APNEIC SHE STATES SHE'S HOLDING HER BREATH. PT CHRONIC AFIB WITH HR 100-110, ANTICOGULATED WITH WARFARIN. PT HYPOTENSIVE WITH MAP IN 50'S, LEVOPHED STARTED @ 6 MCG/MIN PT HAS ABDOMINAL PAIN WITH PALPATION. LARGE AMOUNT OF LIQUID MAROON STOOL WITH LARGE CLOTS FROM RECTUM, RECTAL TUBE INSERTED. PT HAS BILATERAL HIP/BUTTOCK CELLULITIS WITH REDNESS TO KNEES AND BILATERAL WOUNDS TO HIPS (PICTS IN CHART). AREA RED AND WARM. HANDS AND FEET COLD, DUSKY WITH CAP REFILL>3 SECS. PT RECEIVING 6TH UNIT PRBCS. SEE FULL ADMISSION ASSESSMENT.
--- NOTE | 2021-08-26 14:57 | NUR ---
PT PREOPED IN ICU 15. History, Chart, Medications and Allergies reviewed before start of procedure. Lungs clear T/O to Auscultation. Patient confirms NPO status and agrees with scheduled surgery.
--- NOTE | 2021-08-26 16:43 | NUR ---
08/26/21 1643 iVv Simmons PATIENT IS ON SCHEDULED ANTIBIOTICS
[2021-08-26 20:42] LABS: Source, Urine Foley catheter
[2021-08-26 20:53] LABS: Blood, Urine 4+ (Neg); Glucose Qualitative, Urine Neg (Neg); Ketones, Urine 1+ (Neg); Leukocyte Esterase, Urine 1+ (Neg); Nitrite, Urine Neg (Neg); Protein, Urine 2+ (Neg); Urobilinogen, Urine 1+ (Normal)
[2021-08-26 20:57] LABS: Hemoglobin 10.4 g/dL (11.5-16.0)
--- NOTE | 2021-08-26 21:01 | NUR ---
ASSUMED CARE. REPORT RECEIVED FROM NATALIE FERNANDO. PT ARRIVED BACK IN ICU FROM OR AT APPROXIMATELY 1920. PT INTUBATED, RT AT BEDSIDE. ETT 7.0, 23 AT TEETH, VENT SETTINGS: AC/VC 18/400/5/35%. OG TUBE PLACE, CLAMPED. XRAY CONFIRMATION OF ETT AND OG COMPLETED. PT HAS L/IJ CENTRAL LINE IN PLACE, LEVOPHED STARTED AT 7 MCG/MIN, PROPOFOL STARTED AT 10 MCG/KG/MIN, LR BOLUS STARTED. ABDOMINAL DRESSING WITH VINCENT WOUND VAC IN PLACE, GOOD SEAL. COLOSTOMY BAG IN PLACE, SANGUINEOUS DRAINAGE NOTED. TOSCANO CATHETER IN PLACE, DRAINING TO GRAVITY, JACQUES URINE. VS STABLE, WILL CONTINUE TO MONITOR. I
[2021-08-26 21:22] LABS: Appearance, Urine Clear (Clear); Bilirubin, Urine 2+ (Neg); Color, Urine Amber (P-Yellow)
[2021-08-26 21:23] LABS: Amorphous Light (0-Heavy); Bacteria Few /hpf; Red Blood Cells, Urine TNTC /hpf (0-2); Squamous Epithelial Cells Rare /hpf (Few)
[2021-08-26 22:02] LABS: Base Excess Venous -6.8 mmol/L; Bicarbonate Venous 18.9 mmol/L (24.0-30.0); PO2 Venous 80.9 mmHg (38-42)
[2021-08-26 22:03] LABS: pH Blood Venous 7.25 (7.34-7.37)
[2021-08-27 03:24] LABS: Hematocrit 31.8 % (33.0-51.0); Hemoglobin 10.4 g/dL (11.5-16.0); Mean Corpuscular HGB 28.5 pg (26.0-34.0); Mean Corpuscular HGB Conc 32.7 g/dL (31.5-36.5); Mean Corpuscular Volume 87 fL (80-100); Mean Platelet Volume 9.2 fL (9.1-12.4); NRBC ABSOLUTE 0.03 K/mm3 (0.00-0.02); NRBC Auto 0.1 /100 WBC (0.0-0.2); Platelet Count 309 K/mm3 (150-400); RDW Coefficient Variation 19.5 % (11.7-14.2); RDW Standard Deviation 58.5 fL (35.1-46.3); Red Blood Cell Count 3.65 M/mm3 (3.80-5.20)
[2021-08-27 03:40] LABS: Albumin, Blood 1.6 g/dL (3.4-5.0); Anion Gap 12 mmol/L (6-16); Blood Urea Nitrogen 50 mg/dL (8-24); Bun/Creatinine Ratio 14.9 (12.0-20.0); CO2, Blood 22 mmol/L (21-32); Chloride, Blood 96 mmol/L (98-108); Creatinine, Blood 3.36 mg/dL (0.40-1.00); Glomerular Filtration Rate 14 (60-); Glucose, Blood 230 mg/dL (70-99); Phosphorus, Blood 7.1 mg/dL (2.5-4.9); Potassium, Blood 4.5 mmol/L (3.5-5.5); Sodium, Blood 130 mmol/L (136-145)
[2021-08-27 03:49] LABS: BAND PERCENT MAN 19 % (0-8); BASOPHILS PERCENT MAN 0 % (0-2); EOSINOPHILS ABSOLUTE MAN 0.33 K/mm3 (0.00-0.68); EOSINOPHILS PERCENT MAN 1 % (0-6); LYMPHOCYTES ABSOLUTE MAN 0.33 K/mm3 (0.84-5.20); LYMPHOCYTES PERCENT MAN 1 % (21-46); METAMYELOCYTE ABSOLUTE MAN 0.33 K/mm3 (0.00-0.00); METAMYELOCYTE PERCENT MAN 1 % (0-0); MONOCYTES ABSOLUTE MAN 1.01 K/mm3 (0.16-1.47); MONOCYTES PERCENT MAN 3 % (4-13); NEUTROPHILS ABSOLUTE MAN 31.86 K/mm3 (1.96-9.15); SEG NEUTROPHILS PERCENT MAN 75 % (41-73); TOTAL CELLS COUNTED 100
--- NOTE | 2021-08-27 07:01 | NUR ---
SHIFT SUMMARY. PT RESTED IN BED THROUGHOUT SHIFT, SEDATED AND VENTILATED VIA ETT. VENT SETTINGS AC/VC 18/400/5/35%. OG TUBE IN PLACE, CLAMPED. R/IJ CENTRAL LINE IN PLACE, IV PUMP SETTINGS: LEVOPHED 25 MCG/MIN, VASOPRESSIN 0.04 UNITS/MIN, EPINEPHRINE 3 MCG/MIN, PROPOFOL 20 MCG/KG/MIN, NS TKO. VASOPRESSORS TITRATED THROUGHOUT SHIFT TO SUPPORT BP. ABDOMINAL DRESSING IN PLACE, VINCENT WOUND VAC ATTACHED, GOOD SUCTION AND SEAL. COLOSTOMY BAG IN PLACE, SANGUINEOUS DRAINAGE NOTED WITH CLOTS. TOSCANO CATHETER IN PLACE, 200 MLS DARK JACQUES URINE OUT THIS SHIFT. RESTRAINTS IN PLACE, SWB. VITAL SIGNS STABLE ATT, SEE SHIFT ASSESSMENT FOR FURTHER DETAILS. REPORT GIVEN TO NATALIE FERNANDO. PT CELLPHONE AND BELONGINGS SENT HOME WITH SISTER JAMILAH AT BEGINNING OF SHIFT.
[2021-08-27 09:12] LABS: Base Excess Venous -11.7 mmol/L; Bicarbonate Venous 15.1 mmol/L (24.0-30.0); PCO2 Venous 48.3 mmHg (38-42); PO2 Venous 46.3 mmHg (38-42)
[2021-08-27 09:13] LABS: pH Blood Venous 7.16 (7.34-7.37)
--- NOTE | 2021-08-27 09:21 | NUR ---
ASSUMED CARE OF PT, REPORT RCV'D FROM KASSIE CHAUDHARI. PT INTUBATED AND LIGHTLY SEDATED. VENT SETTINGS AC 18/400/5/35%. PROPOFOL @ 20 MCG/KG/MIN. PT WITHDRAWS FROM PAIN, FAILS TO RESPOND TO VERBAL STIMULI. PROPOFOL PLACED ON STANDBY-NO IMPROVEMENT IN NEURO STATUS, REMAINS ON STANDBY. PUPIL 4MM BILATERAL MINIMAL RESPONSE TO LIGHT. PT AFIB RVR, HR 150-160'S. 3+ PITTING EDEMA BILATERAL LOWER EXTREMETIES, 2+ PITTING EDEMA BILATERAL UPPER EXTREMETIES, WEEPING EDEMA BILATERAL HIPS AND UPPER THIGHS. CELLULITIS BILATERAL HIPS, THIGHS, BUTTOCS-NECROTIC WOUNDS BILATERAL HIPS (SEE PICTS IN CHART), SKIN RED AND WARM TO TOUCH. FINGERS BILATERALLY PURPLE TO PALM, FEET PALE AND COLD-DOPPLER PULSES ONLY. LEVOPHED @ 25-30 MCG/MIN, VASOPRESSIN @0.04 UNITS/MIN, EPI @5 MCG/MIN TO MAINTAIN MAP>65. COLOSTOMY TO LUQ, STOMA FLAT, PINK-BLOODY OUTPUT. DR. LOTT IN TO ASSESS THIS AM. TOSCANO PATENT AND DRAINING SMALL AMOUNT OF YELLOW URINE. PALLIATIVE CARE CONSULTED. DR. CHAPMAN TO ATTEMPT CONTACT WITH FAMILY. SEE FULL SHIFT ASSESSMENT.
--- NOTE | 2021-08-27 09:58 | NUR ---
PT FLUTTERING EYES. SEDATION RESTARTED. FRIEND AT BEDSIDE. STEP-FATHER (ANALI) UPDATED. PER ANALI, PT'S (GRIFFIN) SUFFERED BRAIN BLEED AND IS COGNITIVELY UNABLE TO MAKE DECISIONS.
--- NOTE | 2021-08-27 10:48 | NUR ---
NO DIALYSIS TODAY PER DR CHAPMAN REQUEST. ADVISED THAT PT MAY BE TRANSITIONED TO [id number].
--- NOTE | 2021-08-27 10:56 | NUR ---
Spiritual Care Visit. Pt. is on a ventilator and is not responsive. Long time friend Jess (listed as primary contact) is present and welcomes my visit. Friend is unsettled about the impact of Pts. condition and care for Pts. . Facilitate a life review. Prayed for Pt. and friend. Friend displayed evidence of both understanding the Pts. condition and hope for her recovery. Conducted a "Things We Care to Know Survey" on behlf of the Pt. Friend verbalized gratitude for the spiritual care visit.
--- NOTE | 2021-08-27 11:27 | NUR ---
MULTIPLE FAMILY MEMBERS AT BEDSIDE DISCUSSING POSSIBLE COMFORT CARE. PER FAMILY, PT'S BROTHER IS MEDICAL POA, BROTHER ATTEMPTING TO GET FLIGHT FROM [facility].
[2021-08-27 12:27] LABS: Vancomycin, Random 15.2 ug/mL
--- NOTE | 2021-08-27 15:43 | NUR ---
Spiritual Care Follow up. Pt. is on a ventilator. Friend is bedside and welcomes my visit. Inquired about how the family visit went ([email or web address]. [email or web address] ). Friend verbalized that it went well, but that spouse of Pt. is not likely to return. Family is waiting on at least one more family member (Son of Pt.) to arrive before Comfort Care decision is made. This aquatic life laborer purchased a salad and soda for the friend at bedside. Friend verbalized gratitude for the lunch and the spiritual care visit.
--- NOTE | 2021-08-27 17:07 | NUR ---
SHIFT SUMMARY PT REMAINS INTUBATED AND LIGHTLY SEDATED. VENT SETTINGS AC 18/400/5/100%, UNABLE TO GET ACCURATE SPO2 READING D/T HIGH HR AND POOR PERFUSION. PROPOFOL @ 10 MCG/KG/MIN. PT MINIMALLY RESPONSIVE TO PAINFUL AND NOXIOUS STIMULI, PUPILS 4-5 MM VERY LITTLE RESPONSE TO LIGHT. MINIMAL GAG/COUGH. LEVOPHED @ 25 MCG/MIN, VASOPRESSIN @0.04 UNITS/MIN, EPI GTT PLACED ON STANDBY D/T HR>180'S. PT REMAINS HYPOTENSIVE, MAP 30'S-70'S. FINGERS/TOES REMAINS PURPLE AND COOL TO TOUCH. PROXIMAL EXTREMETIES WARM TO TOUCH. PT FEBRILE, TMAX 100.6. 250 ML BLOODY FOUL SMELLING OUTPUT FROM OSTOMY. 10 ML URINARY OUTPUT THIS SHIFT. FAMILY DECIDED TO MAKE JAMILAH POINT OF CONTACT. AWAITING PT'S BROTHER'S ARRIVAL FROM [facility]. ADVANCED DIRECTIVE ON PT'S FILE ELECTING [facility]. PALLIATIVE CARE WORKING CLOSELY WITH FAMILY. WILL REPORT TO ONCOMING NURSE.
--- NOTE | 2021-08-27 18:57 | NUR ---
Pt to be placed on comfort tonight after son arrives.
--- NOTE | 2021-08-27 20:34 | NUR ---
ASSUMED CARE. REPORT RECEIVED FROM NATALIE FERNANDO. PT RESTING IN BED, SEDATED AND VENTILATED VIA ETT. VENT SETTINGS: AC/VC 18/400/5/100%. OG TUBE IN PLACE, CLAMPED. R/IJ CENTRAL LINE IN PLACE, WNL. IV PUMPS RUNNING LEVOPHED 25 MCG/MIN, EPI 1 MCG/MIN, VASOPRESSIN 0.04 UNITS/MIN, PROPOFOL 10 MCG/KG/MIN, NS 10 ML/HR. R/AC IV ACCESS IN PLACE. ABDOMINAL SURGICAL DRESSING IN PLACE, VINCENT WOUND VAC ATTACHED, GOOD SUCTION AND SEAL, NO LEAKS. COLOSTOMY BAG IN PLACE, SANGUINEOUS, LIQUID DRAINAGE NOTED. TOSCANO CATHETER IN PLACE. SWB RESTRAINTS IN PLACE. VS STABLE ATT, WILL CONTINUE TO MONITOR.
--- NOTE | 2021-08-27 22:44 | NUR ---
PT EXTUBATED TO COMFORT CARE AT APPROXIMATELY 2214. FAMILY AT BEDSIDE. PER FAMILY REQUEST, ALL SUPPORTIVE CARE REMOVED. PT OFF ALL VASOPRESSORS AND SEDATION AT THIS TIME.
--- NOTE | 2021-08-28 00:08 | NUR ---
PATIENT TIME OF 0006. FAMILY AT BEDSIDE.
== END 2021-08-28 00:06 | DRG 853 ==
LOC: ER 05:50 → ICUW 10:20 → ERHOLD 10:20 → ICUW 12:22
PROVIDERS: Internal Medicine Critical Care Medicine; Internal Medicine Nephrology; Pharmacist; Student in an Organized Health Care Education/Training Program; Surgery; ADMIT Internal Medicine
PROC: 3E03329 Introduction of Other Anti-infective into Peripheral Vein, Percutaneous Approach (ICD-10-PCS; 2021-08-26)
PROC: 02HV33Z Insertion of Infusion Device into Superior Vena Cava, Percutaneous Approach (ICD-10-PCS; 2021-08-26)
PROC: 0DTN0ZZ Resection of Sigmoid Colon, Open Approach (ICD-10-PCS; 2021-08-26)
PROC: 0D1M0Z4 Bypass Descending Colon to Cutaneous, Open Approach (ICD-10-PCS; 2021-08-26)
PROC: 0DJD8ZZ Inspection of Lower Intestinal Tract, Via Natural or Artificial Opening Endoscopic (ICD-10-PCS; 2021-08-26)
PROC: 30283B1 Transfusion of Nonautologous 4-Factor Prothrombin Complex Concentrate into Vein, Percutaneous Approach (ICD-10-PCS; 2021-08-26)
PROC: 3E033XZ Introduction of Vasopressor into Peripheral Vein, Percutaneous Approach (ICD-10-PCS; principal; 2021-08-26 10:00)
PROC: 30233N1 Transfusion of Nonautologous Red Blood Cells into Peripheral Vein, Percutaneous Approach (ICD-10-PCS; 2021-08-26 10:00)
DX: A41.9 Sepsis, unspecified organism (principal); N18.6 End stage renal disease; R65.21 Severe sepsis with septic shock; L03.115 Cellulitis of right lower limb; K55.9 Vascular disorder of intestine, unspecified; Z51.5 Encounter for palliative care; N25.81 Secondary hyperparathyroidism of renal origin; I13.2 Hypertensive heart and chronic kidney disease with heart failure and with stage 5 chronic kidney disease, or end stage renal disease; E87.1 Hypo-osmolality and hyponatremia; D62 Acute posthemorrhagic anemia; Z20.822 Contact with and (suspected) exposure to COVID-19; D63.1 Anemia in chronic kidney disease; I50.9 Heart failure, unspecified; E66.9 Obesity, unspecified; E11.40 Type 2 diabetes mellitus with diabetic neuropathy, unspecified; G25.81 Restless legs syndrome; E11.22 Type 2 diabetes mellitus with diabetic chronic kidney disease; D72.829 Elevated white blood cell count, unspecified; R57.8 Other shock; J45.909 Unspecified asthma, uncomplicated; I48.91 Unspecified atrial fibrillation; Z86.010 Personal history of colon polyps; Z79.4 Long term (current) use of insulin; Z79.899 Other long term (current) drug therapy; Z86.711 Personal history of pulmonary embolism; Z99.2 Dependence on renal dialysis; Z98.890 Other specified postprocedural states; Z79.01 Long term (current) use of anticoagulants; Z98.84 Bariatric surgery status; Z90.710 Acquired absence of both cervix and uterus; Z90.89 Acquired absence of other organs; Z86.718 Personal history of other venous thrombosis and embolism
CPT/HCPCS: 0241U; 36415; 36430; 36556; 71045; 74177; 80047; 80053; 80069; 80202; 81001; 82248; 82272; 82330; 82803; 82947; 83605; 83735; 85014; 85018; 85025; 85610; 85730; 86850; 86900; 86901; 86920; 86923; 87040; 87077; 87086; 87186; 88307; 93005; 93010; 94002; 94003; 96365; 96367; 96368; 96375; 96376; 99285-25; A9270; C1751; C9113; J0171; J1100; J1430; J1720; J2185; J2370; J2405; J2543; J2704; J3010; J3370; J3430; J7030; J7040; J7050; J7060; J7120; J7168; P9016; P9059; Q9967